=== PATIENT | female | born 1970 | race Caucasian/White ===

== ENCOUNTER 2023-06-18 16:21 | Outpatient (OUT) | payer BC, SELFPAY ==
[2023-06-24 19:07] LABS: Aspergillus flavus Negative (Neg:<1:1); Aspergillus fumigatus Negative (Neg:<1:1); Aspergillus niger Negative (Neg:<1:1)
== END 2023-06-18 16:22 | disposition home or self-care (01) ==
LOC: LAB 16:28
PROVIDERS: PCP Family Medicine; Visit Provider Family Medicine
DX: B44.89 Other forms of aspergillosis (principal)
CPT/HCPCS: 36415; 86003; 86606; 99999

== ENCOUNTER 2024-09-21 17:01 | Outpatient (OUT) | payer BC, OTHER, SELFPAY ==
--- NOTE | 2024-09-21 16:58 | MM_ITS ---
Patient Name: SOREN ROD MR#: [id number] : 1970 Exam Date: 09/21/2024 Ordering Doctor: DR Liseth Mckinney M.D. RADIOLOGY REPORT PROCEDURE: MM TOMOSYNTHESIS SCREENING BI COMPARISON: None. INDICATIONS: Screening Calculator Name NCI Breast Cancer Risk Assessment Tool 5 Year Breast Cancer Risk 1.40% Lifetime Breast Cancer Risk 12.00% Personal Breast Cancer No Personal Ovarian Cancer No Treatments None Family Cancers Grandfather-paternal with esophageal cancer at age 65; Father with esophageal cancer at age 41. LOCATION: [facility] BREAST COMPOSITION: There are scattered areas of fibroglandular density. FINDINGS: DIAGNOSTIC CATEGORY 1--NEGATIVE. RIGHT BREAST: No significant suspicious finding. LEFT BREAST: No significant suspicious finding. RECOMMENDATIONS: ROUTINE MAMMOGRAM AND CLINICAL EVALUATION IN 12 MONTHS. PLEASE NOTE: A NORMAL MAMMOGRAM DOES NOT EXCLUDE THE POSSIBILITY OF BREAST CANCER. A CLINICALLY SUSPICIOUS PALPABLE LUMP SHOULD BE BIOPSIED. Dictated by: Jez Larsen MD on 10/01/2024 at 14:42 Approved by: Jez Larsen MD on 10/01/2024 at 14:44
--- OUTSIDE RECORDS SUMMARY | 2024-09-21 17:04 | XMS_ITS | CCD ---
Author Organization [facility] Care Team Providers Care Construction And Maintenance Inspector Name Role Phone LISETH MCKINNEY Consulting Unavailable LISETH MCKINNEY Admitting Unavailable LISETH MCKINNEY Attending Unavailable LISETH MCKINNEY Consulting Unavailable FAYE LISETH E Primary Care Unavailable SUGEY MCKINNEYIA E Admitting Unavailable LISETH MCKINNEY E Attending Unavailable LISETH MCKINNEY E Consulting Unavailable SUGEY MCKINNEYIA E Admitting Unavailable LISETH MCKINNEY E Attending Unavailable Faye, Liseth Unavailable Allergies Allergy Classification Reported Allergen(s) Allergy Type Date of Onset Reaction(s) Facility (1 source) Sulfonamides (Antibiotic) Drug allergy (disorder) 10-14-19 17 [facility] (9 sources) Sulfacetamide Drug Allergy 09-10-19 [facility] (9 sources) wiggins flavor Propensity to adverse reactions 09-10-19 anaphylaxis [facility] (5 sources) zolpidem Drug Allergy 05-15-20 17 Unknown, [facility] Comment on above: Onset Date: 05/15/20 17 (1 source) Allergies Reconciled Propensity to adverse reactions Unknown [facility] Other (3 sources) Substance with sulfonamide structure and antibacterial mechanism of action (substance) Drug allergy 10-13-19 14 Unknown [facility] Other (1 source) patient allergy list reviewed by nurse or physicia Propensity to adverse reactions 09-11-19 18 Comment:Done [facility] Other (3 sources) Fruit & Vegetable Daily *DIETARY PRODUCTS/DIETARY Propensity to adverse reactions 10-13-19 14 Comment:pt is allergic to CHERRIES [facility] Other (2 sources) Sulfonamides (Antibiotic) Allergy to substance 09-10-19 [facility] Comment on above: Onset Date: 10/13/19 14 (2 sources) Fruit & Vegetable Daily *DIETA Allergy to substance 06-17-20 Comment:pt is allergic to CHERRIES [facility] Comment on above: Free Text Allergy: F ruit & Vegetable Daily *DIETARY PRODUCTS/DIETARY; Onset Date: 10/13/2013 Medications Current Medications Medication Drug Class(es) Dates Sig (Normalized) Sig (Original) 0.5 ML tirzepatide 10 MG/ML Auto-Injector [Mounjaro] (7 sources) Mounjaro 5 MG/0. 5ML as directed Subcutaneous weekly for 28 days Active Mounjaro 5 MG/0. 5ML as directed Subcutaneous Active Tirzepatide (8 sources) Start: 09-10-2024 Tirzepatide (M ounjaro) 5 mg/0.5 mL pen injector Active 5 MG SUBCUT every week 2 September 10, 2024 12:18pm Start: 04-22-2024 End: 09-10-2024 Tirzepatide (Mounjaro) 5 mg/ 0.5 mL pen injector Discontinued 5 MG SUBCUT every week 2 April 22, 2024 11:30am September 10, 2024 12:18pm Start: 12-02-2023 End: 04-22-2024 Tirzepatide (Mounjaro) 5 mg/ 0.5 mL pen injector Discontinued 5 MG SUBCUT every week 2 December 02, 2023 9:01am April 22, 2024 11:30am Start: 12-02-2023 End: 12-02-2023 Tirzepatide (Mounjaro) 5 mg/ 0.5 mL pen injector Discontinued 5 MG SUBCUT every week December 01, 2023 11:00pm December 02, 2023 9:02am Problems Active Problems Problem Classification Problem Date Documented Date Episodic/Chronic Anxiety disorders (10 sources) Generalized anxiety disorder; Translations: [Generalized anxiety disorder] Onset: 05-15-2017 Chronic Immunizations and screening for infectious disease (4 sources) Contact with and (suspected) exposure to other viral communicable diseases; Translations: [CONTCT EXPS OTH VIRL COMMUNICABL DZ] Onset: 08-14-2020 Episodic Mycoses (1 source) Other forms of aspergillosis Episodic Other circulatory disease (1 source) Elevated blood-pressure reading without diagnosis of hypertension; Translations: [Elevated blood-pressure reading, without diagnosis of hypertension] Episodic Other inflammatory condition of skin (7 sources) Seborrheic dermatitis of scalp; Translations: [Seborrhea capitis] Episodic Other inflammatory condition of skin (1 source) Seborrhea capitis; Translations: [Dandruff in adult] Episodic Other nutritional; endocrine; and metabolic disorders (7 sources) Obesity; Translations: [Other obesity due to excess calories] Chronic Other nutritional; endocrine; and metabolic disorders (12 sources) Body mass index 30+ - obesity; Translations: [Body mass index (BMI) 32.0-32.9, adult] Chronic Other nutritional; endocrine; and metabolic disorders (2 sources) Other obesity due to excess calories Chronic Other nutritional; endocrine; and metabolic disorders (1 source) Body mass index (BMI) 32.0-32.9, adult Chronic Other nutritional; endocrine; and metabolic disorders (1 source) Body mass index (BMI) 31.0-31.9, adult Chronic Other nutritional; endocrine; and metabolic disorders (1 source) Obese class II; Translations: [Body mass index (BMI) 36.0-36.9, adult] Chronic Other nutritional; endocrine; and metabolic disorders (1 source) Obese class I; Translations: [Body mass index 34.0-34.9, adult] Onset: 09-11-2017 Chronic Otitis media and related conditions (1 source) Otitis media; Translations: [Otitis media, unspecified, right ear] Episodic Unclassified (1 source) COVID-19; Translations: [COVID-19] Onset: 08-21-2020 Viral infection (1 source) Disease caused by 2019-nCoV; Translations: [COVID-19] Past or Other Problems Problem Classification Problem Date Documented Da te Episodic/Chronic Acute bronchitis (1 source) Acute bronchitis; Translations: [Acute bronchitis, unspecified] Onset: 06-26-2016 Episodic Other skin disorders (1 source) Disorder of skin and/or subcutaneous tissue; Translations: [Unspecified disorder of skin and subcutaneous tissue] Onset: 05-15-2017 Episodic Other upper respiratory infections (1 source) Acute sinusitis; Translations: [Acute sinusitis, unspecified] Onset: 10-13-2013 Episodic Results Test Name Value Interpretation Reference Range Facil ity SCREENING MAMMOGRAM W/COLEEN, BILATERAL*on 01-22-2022 SCREENING MAMMOGRAM W/COLEEN, BILATERAL* CLINICAL HISTORY: Screening Mammogram COMPARISON: Priors from 2020, 2017, 2015 TECHNIQUE: 2D and 3D mammogram imaging of both breasts was performed. RESULT: DENSITY: There are scattered areas of fibroglandular density. There is no suspicious mass, asymmetry, architectural distortion, or calcification. No significant change since the prior mammograms. IMPRESSION: BIRADS 1 : NEGATIVE, NORMAL INTERVAL FOLLOW UP FOLLOW-UP: 12 months DENSITY: Scattered MAMMOGRAPHY IS VERY IMPORTANT TO YOUR HEALTH. THE CURRENT [employer] [employer]WORK GUIDELINES RECOMMENDS ANNUAL MAMMOGRAPHY BEGINNING AT AGE 42 THIS FACILITY USES A REMINDER SYSTEM TO ENSURE ALL PATIENTS RECEIVE REMINDER NOTIFICATIONS AT THE APPROPRIATE TIME BASED ON THE RECOMMENDATIONS OF THIS EXAM. Board Certified Radiologist. Accredited by the ACR and FDA. Report reported and signed by Charlie Martinez on 01/22/2022 1540 Normal [facility]on 07-26 Covid-19 PCR NOT DETECTED Normal NOT DETECTED [facility] Comment on above: Result Comment: This test is not yet stacy roved or cleared by the [place] FDA. When there are no FDA-approved or cleared tests available, and other criteria are met, FDA can make tests available under an emergency access mechanism called an Emergency Use Authorization (EUA). The EUA for this test is supported by the Investment [employer] Associate of Health and Human Service's (HHS's) declaration that circumstances exist to justify the emergency use of in vitro diagnostics for the detection and/or diagnosis of the virus that causes COVID-19. This EUA will remain in effect (meaning this test can be used) for the duration of the COVID-19 declaration justifying emergency of IVDs, unless it is terminated or revoked by FDA (after which the test may no longer be used). Performed By: #### C [facility] #### [facility] [address] [place] [address] [place] EUA Statement SEE BELOW Normal [facility] Comment on above: Result Comment: This test is not yet stacy roved or cleared by the [place] FDA. When there are no FDA-approved or cleared tests available, and other criteria are met, FDA can make tests available under an emergency access mechanism called an Emergency Use Authorization (EUA). The EUA for this test is supported by the [employer] Associate of Health and Human Service?s (HHS?s) declaration that circumstances exist to justify the emergency use of in vitro diagnostics for the detection and/or diagnosis of the virus that causes COVID-19. This EUA will remain in effect (meaning this test can be used) for the duration of the COVID-19 declaration justifying emergency of IVDs, unless it is terminated or revoked by FDA (after which the test may no longer be used). When diagnostic testing is negative, the possibility of a false negative should be considered in the context of a patients recent exposures and the presence of clinical signs and symptoms consistent with SARS-CoV-2. Performed By: #### C [facility] #### [facility] [address] [place] [address] [place] [facility]on 07-25 Covid-19 PCR DETECTED Abnormal NOT DETECTED [facility] Comment on above: Result Comment: This test is not yet stacy roved or cleared by the [place] FDA. When there are no FDA-approved or cleared tests available, and other criteria are met, FDA can make tests available under an emergency access mechanism called an Emergency Use Authorization (EUA). The EUA for this test is supported by the [place] of Health and Human Service's (HHS's) declaration that circumstances exist to justify the emergency use of in vitro diagnostics for the detection and/or diagnosis of the virus that causes COVID-19. This EUA will remain in effect (meaning this test can be used) for the duration of the COVID-19 declaration justifying emergency of IVDs, unless it is terminated or revoked by FDA (after which the test may no longer be used). Performed By: #### C [facility] #### [facility] [address] [place] [address] [place] EUA Statement SEE BELOW Normal [facility] Comment on above: Result Comment: This test is not yet stacy roved or cleared by the [place] FDA. When there are no FDA-approved or cleared tests available, and other criteria are met, FDA can make tests available under an emergency access mechanism called an Emergency Use Authorization (EUA). The EUA for this test is supported by the Investment [employer] Associate of Health and Human Service?s (HHS?s) declaration that circumstances exist to justify the emergency use of in vitro diagnostics for the detection and/or diagnosis of the virus that causes COVID-19. This EUA will remain in effect (meaning this test can be used) for the duration of the COVID-19 declaration justifying emergency of IVDs, unless it is terminated or revoked by FDA (after which the test may no longer be used). When diagnostic testing is negative, the possibility of a false negative should be considered in the context of a patients recent exposures and the presence of clinical signs and symptoms consistent with SARS-CoV-2. Performed By: #### C [facility] #### [facility] [address] [place] [address] [place] Covid-19 PCR ([facility])on 07-25 Covid-19 PCR DETECTED Abnormal NOT DETECTED [facility] Comment on above: Result Comment: This test is not yet stacy roved or cleared by the [place] FDA. When there are no FDA-approved or cleared tests available, and other criteria are met, FDA can make tests available under an emergency access mechanism called an Emergency Use Authorization (EUA). The EUA for this test is supported by the [place] of Health and Human Service's (HHS's) declaration that circumstances exist to justify the emergency use of in vitro diagnostics for the detection and/or diagnosis of the virus that causes COVID-19. This EUA will remain in effect (meaning this test can be used) for the duration of the COVID-19 declaration justifying emergency of IVDs, unless it is terminated or revoked by FDA (after which the test may no longer be used). Performed By: #### C [facility] #### [facility] [address] [id number] [place] EUA Statement SEE BELOW Normal [facility] Comment on above: Result Comment: This test is not yet stacy roved or cleared by the [place] FDA. When there are no FDA-approved or cleared tests available, and other criteria are met, FDA can make tests available under an emergency access mechanism called an Emergency Use Authorization (EUA). The EUA for this test is supported by the Investment [employer]ing Associate of Health and Human Service?s (HHS?s) declaration that circumstances exist to justify the emergency use of in vitro diagnostics for the detection and/or diagnosis of the virus that causes COVID-19. This EUA will remain in effect (meaning this test can be used) for the duration of the COVID-19 declaration justifying emergency of IVDs, unless it is terminated or revoked by FDA (after which the test may no longer be used). When diagnostic testing is negative, the possibility of a false negative should be considered in the context of a patients recent exposures and the presence of clinical signs and symptoms consistent with SARS-CoV-2. Performed By: #### [facility] #### [facility] [address] [place] [address] [place] Vital Signs Date Time Vital Sign Value Performing Clinician Facility 09-10-2024 12:03-0500 Body height 158.75 cm [facility] 09-10-2024 12:03-0500 Body mass index (BMI) [Ratio] 32.5 kg/m2 [facility] 09-10-2024 12:03-0500 Body weight 82.1 kg [facility] 09-10-2024 12:03-0500 Diastolic blood pressure 84 mm[Hg] [facility] 09-10-2024 12:03-0500 Heart rate 61 /min [facility] 09-10-2024 12:03-0500 Systolic blood pressure 122 mm[Hg] [facility] 06-17-2023 14:45-0400 Body height 159.38 cm Liseth Mckinney Other [facility] Other 06-17-2023 14:45-0400 Body mass index (BMI) [Ratio] 30.17 kg/m2 Liseth Mckinney Other [facility] Other 06-17-2023 14:45-0400 Body weight 76.66 kg Liseth Mckinney Other [facility] Other 06-17-2023 14:45-0400 Diastolic blood pressure 79 mm[Hg] Liseth Mckinney Other [facility] Other 06-17-2023 14:45-0400 Systolic blood pressure 117 mm[Hg] Liseth Mckinney Other [facility] Other 02-24-2023 08:30-0400 Body height 159.38 cm Liseth Mckinney Other [facility] Other 02-24-2023 08:30-0400 Body mass index (BMI) [Ratio] 31.53 kg/m2 Liseth Mckinney Other [facility] Other 02-24-2023 08:30-0400 Body weight 80.11 kg Liseth Mckinney Other [facility] Other 02-24-2023 08:30-0400 Diastolic blood pressure 75 mm[Hg] Liseth Mckinney Other [facility] Other 02-24-2023 08:30-0400 Systolic blood pressure 111 mm[Hg] Liseth Mckinney Other [facility] Other 11-26-2022 16:30-0400 Body height 159.38 cm Liseth Mckinney Other [facility] Other 11-26-2022 16:30-0400 Body mass index (BMI) [Ratio] 32.85 kg/m2 Liseth Mckinney Other [facility] Other 11-26-2022 16:30-0400 Body weight 83.46 kg Liseth Mckinney Other [facility] Other 11-26-2022 16:30-0400 Diastolic blood pressure 78 mm[Hg] Liseth Mckinney Other [facility] Other 11-26-2022 16:30-0400 SaO2% (BldA) [Mass fraction] 99 % Liseth Mckinney Other [facility] Other 11-26-2022 16:30-0400 Systolic blood pressure 126 mm[Hg] Liseth Mckinney Other [facility] Other Encounters Encounter Date Encounter Type Care Provider Facility Start: 09-10-2024 End: 09-10-[address] [facility] Work Phone: Start: 09-10-2024 End: 09-10-2024 Patient encounter procedure [facility] Work Phone: Start: 06-25-2023 End: 06-25-2023 ambulatory Liseth Mckinney Other [facility] Other Start: 06-25-2023 Telephone encounter Liseth Mckinney [facility] Start: 06-17-2023 End: 06-17-2023 ambulatory Liseth Mckinney Other [facility] Other Start: 06-17-2023 Office outpatient vi sit 15 minutes Liseth Mckinney [facility] Start: 03-20-2023 End: 03-20-2023 ambulatory Liseth Mckinney Other [facility] Other Start: 03-20-2023 Telephone encounter Liseth Mckinney [facility] Start: 02-24-2023 End: 02-24-2023 ambulatory Liseth Mckinney Other [facility] Other Start: 02-24-2023 Office outpatient vi sit 15 minutes Liseth Mckinney [facility] Start: 02-21-2023 End: 02-21-2023 ambulatory Liseth Mckinney Other [facility] Other Start: 02-21-2023 Telephone encounter Liseth Mckinney [facility] Start: 01-17-2023 End: 01-17-2023 ambulatory Liseth Mckinney Other [facility] Other Start: 01-17-2023 Telephone encounter Liseth Faye [facility] Start: 11-26-2022 End: 11-26-2022 ambulatory Liseth Mckinney Other [facility] Other Start: 11-26-2022 Office outpatient vi sit 15 minutes Liseth Faye [facility] Start: 07-31-2022 Adult health examination Liseth Mckinney Other [facility] Other Start: 08-14-2020 End: 08-14-2020 Patient encounter procedure LISETH Maria Luz FAYE Facility:[facility] Start: 08-08-2020 End: 08-08-2020 Patient encounter procedure LISETH MCKINNEY Facility: Start: 08-03-2020 End: 08-04-2020 Patient encounter procedure LISETH Maria Luz FAYE Facility:[facility] Payers Date Payer Category Payer Unknown [id number] [id number] [id number] 1970 Unknown [id number] 2.16.84 [id number] 1970 Unknown [id number] [id number] [id number] 1957 Unknown [id number] 1957 Unknown [id number] Unknown 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 attempted to get her in to human factors advisor lead, but they had no openings. Ordered an allergen profile and aspergillus ab quantitative. Labs handwritten and faxed to [facility] lab. [facility] Other Evaluation note 02-24-2023 Note Date & Type Note Facility 02-24-2023 Evaluation note Encounter Date Diagnosis Assessment Notes Feb, Other obesity due to excess calories (ICD-10 - E66.09) 8# weight loss in 3 months. Discussed diet and exercise. Would like to continue Mounjaro. No insurance issues. Feb, Body mass index [BMI] 31.0-31.9, adult (ICD-10 - Z68.31) Feb, JAQUELIN (generalized anxiety disorder) (ICD-10 - F41.1) Stable at present med/dose. Doing well. [facility] Other Evaluation note 11-26-2022 Note Date & Type Note Facility 11-26-2022 Evaluation note Encounter Date Diagnosis Assessment Notes Nov, Other obesity due to excess calories (ICD-10 - E66.09) Will refill med when due - has definately changed diet and exercise. Has done great on med and denies problems obtaining it w her insurance. Nov, Body mass index [BMI] 32.0-32.9, adult (ICD-10 - Z68.32) [facility] Other Evaluation note Note Date & Type Note Facility Evaluation note No Information [facility] Other Evaluation note Note Date & Type Note Facility Evaluation note No assessment information availa ble [facility] Work Phone: History general Narrative - Reported Note Date & Type Note Facility History general Narrative - Reported Type Medical History Dandruff in adult Medical History JAQUELIN (generalized anxiety disorde r) Surgical History wisdom teeth Hospitalization History child [facility] Other Summary Purpose Family History Relationship Condition Age at Onset Recorded Date/T torrey mother Hypertension Unknown Advance Directives Advance Directive Response Recorded Date/ Time Advance Directives No February 03 2:35pm Chief Complaint and Reason for Visit Chief Complaint Admit Date Med f/u September 10, 2024 1 1:54am Additional Source Comments INFORMATION SOURCE (unrecogn ized section and content) DATE CREATED AUTHOR 08/24/2020 [facility] DATE CREATED AUTHOR AUTHOR'S ORGANIZ ATION 01/23/2022 [facility] dical Specialist REASON FOR VISIT (unrecogniz ed section and content) Med DiscussionRefillRefill3 month Follow upNo Informationdiscuss black mold allergy testingmold testing Care Teams (unrecognized sec tion and content) Team Status: Active Member Role Status Dates Liseth Mckinney MD Primary Care Provider Active Team Status: Inactive Member Role Status Dates Liseth Mckinney MD Primary Care Provide r, Attending Provider Active Start: September 10, 2024 End: September 10, 2024 Goals (unrecognized section and content) Goals may be documented in a n alternate section FOR RECORDS PERTAINING TO PATIENTS WHO ARE OR HAVE BEEN ENROLLED IN A CHEMICAL DEPENDENCY/SUBSTANCEABUSE PROGRAM, SOME INFORMATION MAY BE OMITTED. This clinical summary was aggregated from multiple sources. Caution should be exercised in using it in the provision of clinical care. This summary normalizes information from multiple sources, and as a consequence, information in this document may materially change the coding, format and clinical context of patient data. In addition, data may be omitted in some cases. CLINICAL DECISIONS SHOULD BE BASED ON THE PRIMARY CLINICAL RECORDS. [facility]. provides no warranty or guarantee of the accuracy or completeness of information in this document.
== END 2024-09-21 17:02 | disposition home or self-care (01) ==
LOC: MAMMO 17:02
PROVIDERS: PCP Family Medicine; Visit Provider Family Medicine
DX: Z12.31 Encounter for screening mammogram for malignant neoplasm of breast (principal); Z80.8 Family history of malignant neoplasm of other organs or systems
CPT/HCPCS: 77063; 77067

== ENCOUNTER 2024-10-01 07:42 | Outpatient (OUT) | payer BC, OTHER, SELFPAY ==
--- OUTSIDE RECORDS SUMMARY | 2024-10-01 07:45 | XMS_ITS | CCD ---
Author Organization [facility] Care Team Providers Care [employer] Superintendent Name Role Phone LISETH MCKINNEY Consulting Unavailable [...] (Antibiotic) Drug allergy (disorder) 10-14-19 17 [facility] (9 sources) Sulfacetamide Drug Allergy 09-10-19 [facility] (9 sources) wiggins flavor Propensity to adverse reactions 09-10-19 anaphylaxis [facility] (5 sources) zolpidem Drug Allergy 05-15-20 17 Unknown, [facility] Comment on above: Onset Date: 05/15/20 17 (1 source) Allergies Reconciled Propensity to adverse reactions Unknown [facility] Other (3 sources) Substance with sulfonamide structure and antibacterial mechanism of action (substance) Drug allergy 10-13-19 14 Unknown [facility] (1 source) patient allergy list reviewed by nurse or physicia Propensity to adverse reactions 09-11-19 18 Comment:Done [facility] Other (3 sources) Fruit & Vegetable Daily *DIETARY PRODUCTS/DIETARY Propensity to adverse reactions 10-13-19 14 Comment:pt is allergic to CHERRIES [facility] Other (2 sources) Sulfonamides (Antibiotic) Allergy to substance 09-10-19 [facility] Comment on above: Onset Date: 10/13/19 14 (2 sources) Fruit & Vegetable Daily *DIETA Allergy to substance 06-17-20 Comment:pt is allergic to CHERRIES [facility] Comment on above: Free Text Allergy: F [...] VERY IMPORTANT TO YOUR HEALTH. THE CURRENT CITIZEN OF [place] [employer] GUIDELINES RECOMMENDS ANNUAL MAMMOGRAPHY BEGINNING AT AGE 42 THIS FACILITY USES A REMINDER SYSTEM TO ENSURE ALL PATIENTS RECEIVE REMINDER NOTIFICATIONS AT THE APPROPRIATE TIME BASED ON THE RECOMMENDATIONS OF THIS EXAM. Board Certified Radiologist. Accredited by the ACR and FDA. Report reported and signed by Charlie Martinez on 01/22/2022 1540 Normal [facility] Covid-19 PCR NOT DETECTED Normal NOT DETECTED [facility] Comment on above: Result Comment: This test is not yet stacy roved or cleared by the [place] FDA. When there are no FDA-approved or cleared tests available, and other criteria are met, FDA can make tests available under an emergency access mechanism called an Emergency Use Authorization (EUA). The EUA for this test is supported by the Line [employer] of Health and Human Service's (HHS's) declaration [...] longer be used). Performed By: #### [facility] #### [facility] [address] [place] [address] Odell Woods EUA Statement SEE BELOW Normal [facility] Comment on above: Result Comment: This test is not yet stacy roved or cleared by the [place] FDA. When there are no FDA-approved or cleared tests available, and other criteria are met, FDA can make tests available under an emergency access mechanism called an Emergency Use Authorization (EUA). The EUA for this test is supported by the Line Analyst of Health and Human Service?s (HHS?s) declaration [...] SARS-CoV-2. Performed By: #### C [facility] #### [facility] [address] [place] [address] Odell Woods [facility]-25 Covid-19 PCR DETECTED Abnormal NOT DETECTED [facility] Comment on above: Result Comment: This test is not yet stacy roved or cleared by the [place] FDA. When there are no FDA-approved or cleared tests available, and other criteria are met, FDA can make tests available under an emergency access mechanism called an Emergency Use Authorization (EUA). The EUA for this test is supported by the [place] of Health and Human Service's (HHS's) declaration [...] used). Performed By: #### C [facility] #### [facility] [address] [place] [address] Odell Woods EUA Statement SEE BELOW Normal [facility] Comment on above: Result Comment: This test is not yet stacy roved or cleared by the [place] FDA. When there are no FDA-approved or cleared tests available, and other criteria are met, FDA can make tests available under an emergency access mechanism called an Emergency Use Authorization (EUA). The EUA for this test is supported by the Line Analyst of Health and Human Service?s (HHS?s) declaration [...] SARS-CoV-2. Performed By: #### C [facility] #### [facility] [address] [place] [address] Odell Woods Covid-19 PCR ([facility])on 07-25 Covid-19 PCR DETECTED Abnormal NOT DETECTED [facility] Comment on above: Result Comment: This test is not yet stacy roved or cleared by the [place] FDA. When there are no FDA-approved or cleared tests available, and other criteria are met, FDA can make tests available under an emergency access mechanism called an Emergency Use Authorization (EUA). The EUA for this test is supported by the [place] of Health and Human Service's (HHS's) declaration [...] used). Performed By: #### C [facility] #### [facility] [address] [id number] Odell Woods EUA Statement SEE BELOW Normal [facility] Comment on above: Result Comment: This test is not yet stacy roved or cleared by the [place] FDA. When there are no FDA-approved or cleared tests available, and other criteria are met, FDA can make tests available under an emergency access mechanism called an Emergency Use Authorization (EUA). The EUA for this test is supported by the Line Analyst of Health and Human Service?s (HHS?s) declaration [...] consistent with SARS-CoV-2. Performed By: #### [facility] #### [facility] [address] [place] [address] Odell Woods Vital Signs Date Time Vital Sign Value Performing Clinician Facility 09-10-2024 12:03-0500 Body height 158.75 cm [facility] 09-10-2024 12:03-0500 Body mass index (BMI) [Ratio] 32.5 kg/m2 [facility] 09-10-2024 12:03-0500 Body weight 82.1 kg [facility] 09-10-2024 12:03-0500 Diastolic blood pressure 84 mm[Hg] [facility] 09-10-2024 12:03-0500 Heart rate 61 /min [facility] 09-10-2024 12:03-0500 Systolic blood pressure 122 mm[Hg] [facility] 06-17-2023 14:45-0400 Body height 159.38 cm Liseth Mckinney Other [facility] 06-17-2023 14:45-0400 Body mass index (BMI) [Ratio] 30.17 kg/m2 Liseth Mckinney Other [facility] Other 06-17-2023 14:45-0400 Body weight 76.66 kg Liseth Mckinney Other [facility] Other 06-17-2023 14:45-0400 Diastolic blood pressure 79 mm[Hg] Liseth Mckinney Other [facility] Other 06-17-2023 14:45-0400 Systolic blood pressure 117 mm[Hg] Liseth Mckinney Other [facility] Other 02-24-2023 08:30-0400 Body height 159.38 cm Liseth Mckinney Other [facility] Other 02-24-2023 08:30-0400 Body mass index (BMI) [Ratio] 31.53 kg/m2 Liseth Mckinney Other [facility] Other 02-24-2023 08:30-0400 Body weight 80.11 kg Liseth Mckinney Other [facility] Other 02-24-2023 08:30-0400 Diastolic blood pressure 75 mm[Hg] Liseth Mckinney Other [facility] Other 02-24-2023 08:30-0400 Systolic blood pressure 111 mm[Hg] Liseth Mckinney Other [facility] Other 11-26-2022 16:30-0400 Body height 159.38 cm Liseth Mckinney Other [facility] Other 11-26-2022 16:30-0400 Body mass index (BMI) [Ratio] 32.85 kg/m2 Liseth Mckinney Other [facility] Other 11-26-2022 16:30-0400 Body weight 83.46 kg Liseth Mckinney Other [facility] Other 11-26-2022 16:30-0400 Diastolic blood pressure 78 mm[Hg] Liseth Mckinney Other [facility] Other 11-26-2022 16:30-0400 SaO2% (BldA) [Mass fraction] 99 % Liseth Mckinney Other [facility] Other 11-26-2022 16:30-0400 Systolic blood pressure 126 mm[Hg] Liseth Mckinney Other [facility] Other Encounters Encounter Date Encounter Type Care Provider Facility Start: 09-10-2024 End: 09-10-2024 ambulatory [facility] Work Phone: Start: 09-10-2024 End: 09-10-2024 Patient encounter procedure [facility] Work Phone: Start: 06-25-2023 End: 06-25-2023 ambulatory Liseth Mckinney Other [facility] Other Start: 06-25-2023 Telephone encounter Liseth Mckinney [facility] Start: 06-17-2023 End: 06-17-2023 ambulatory Liseth Mckinney Other [facility] Other Start: 06-17-2023 Office outpatient vi sit 15 minutes Liseth Mckinney [facility] Start: 03-20-2023 End: 03-20-2023 ambulatory Liseth Mckinney Other [facility] Other Start: 03-20-2023 Telephone encounter Liseth Mckinney [facility] Start: 02-24-2023 End: 02-24-2023 ambulatory Liseth Mckinney Other [facility] Other Start: 02-24-2023 Office outpatient vi sit 15 minutes Liseth Mckinney [facility] Start: 02-21-2023 End: 02-21-2023 ambulatory Liseth Mckinney Other [facility] Other Start: 02-21-2023 Telephone encounter Liseth Mckinney [facility] Start: 01-17-2023 End: 01-17-2023 ambulatory Liseth cMkinney Other [facility] Other Start: 01-17-2023 Telephone encounter Liseth Faye [facility] Start: 11-26-2022 End: 11-26-2022 ambulatory Liseth Mckinney Other [facility] Other Start: 11-26-2022 Office outpatient vi sit 15 minutes Liseth Faye [facility] Start: 07-31-2022 Adult health examination Liseth Mckinney Other [facility] Other Start: 08-14-2020 End: 08-14-2020 Patient encounter procedure LISETH Maria Luz FAYE Facility:[facility] Start: 08-08-2020 End: 08-08-2020 Patient encounter procedure LISETH MCKINNEY Facility: Start: 08-03-2020 End: 08-04-2020 Patient encounter procedure LISETH Maria Luz FAYE Facility:[facility] Payers Date Payer Category Payer Unknown [id number] [id number] [id number] 1972 Unknown [id number] [id number] [id number] 1972 Unknown [id number] 1959 Unknown [id number] 1957 Unknown [id number] Unknown [id number]. [id number] Unknown MMO [id number] Social History Date Type Detail Facility Unknown if ever smoked [facility] Other Sex Assigned At Sex Assigned At Bir th [facility] Other Start: 07-29-2018 Tobacco smoking status NHIS Never smoked tobacco (finding) [facility] Start: 09-10-2024 End: 09-10-2024 Sex Female (finding) [facility] Start: 1970 Sex Assigned At Female F [facility] Evaluation note 06-17-2023 Note Date & Type Note Facility 06-17-2023 Evaluation note Encounter Date Diagnosis Assessment Notes May, 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 attempted to get her in to care program director, but they had no openings. Ordered an allergen profile and aspergillus ab quantitative. Labs handwritten and faxed to [facility] lab. [facility] Other Evaluation note 02-24-2023 Note Date & [...] F41.1) Stable at present med/dose. Doing well. [facility] Other Evaluation note 11-26-2022 Note Date & Type Note Facility 11-26-2022 Evaluation note Encounter Date Diagnosis Assessment Notes Nov, Other obesity due to excess calories (ICD-10 - E66.09) Will refill med when due - has definately changed diet and exercise. Has done great on med and denies problems obtaining it w her insurance. Nov, Body mass index [BMI] 32.0-32.9, adult (ICD-10 - Z68.32) [facility] Other Evaluation note Note Date & Type Note Facility Evaluation note No Information [employer] Other Evaluation note Note Date & Type Note Facility Evaluation note No assessment information availa ble [facility] Work Phone: History general Narrative - Reported Note Date & Type Note Facility History general Narrative - Reported Type Medical History Dandruff in adult Medical History JAQUELIN (generalized anxiety disorde r) Surgical History wisdom teeth Hospitalization History child [facility] [employer] Other Summary Purpose Family History Relationship Condition Age at Onset Recorded Date/T torrey mother Hypertension Unknown Advance Directives Advance Directive Response Recorded Date/ Time Advance Directives No February 03 2:35pm Chief Complaint and Reason for Visit Chief Complaint Admit Date Med f/u September 10, 2024 1 1:54am Additional Source Comments INFORMATION SOURCE (unrecogn ized section and content) DATE CREATED AUTHOR 08/24/2020 [facility] DATE CREATED AUTHOR AUTHOR'S ORGANIZ ATION 01/23/2022 [facility] dical Specialist REASON FOR VISIT (unrecogniz [...] BE BASED ON THE PRIMARY CLINICAL RECORDS. [employer] [facility]. provides no warranty or guarantee of the accuracy or completeness of information in this document.
[2024-10-01 08:17] LABS: Basophils Percent Auto 1.1 % (0.2-2.0); Eosinophils Absolute Auto 0.1 10^3/uL (0.0-0.7); Eosinophils Percent Auto 1.6 % (0.9-7.0); Hematocrit 35.5 % (36.0-48.0); Lymphocytes Absolute Auto 1.4 10^3/uL (1.2-3.8); Lymphocytes Percent Auto 37.7 % (20.5-60.0); Mean Corpuscular Hemoglobin 25.9 pg (26.7-34.0); Mean Corpuscular Volume 83.7 fL (81.0-99.0); Monocytes Absolute Auto 0.3 10^3/uL (0.3-0.8); Monocytes Percent Auto 7.6 % (1.7-12.0); Neutrophils Absolute Auto 1.9 10^3/uL (1.4-6.5); Platelet Count 355 10^3/uL (150-450); Red Blood Count 4.24 10^6/uL (4.20-5.40); Red Cell Distribution Width 15.5 % (11.0-15.0); White Blood Count 3.7 10^3/uL (4.0-11.0)
[2024-10-01 08:29] LABS: Estimated Average Glucose 114 mg/dL
[2024-10-01 08:59] LABS: Glycohemoglobin A1C 5.6 % (4.5-6.2)
[2024-10-01 09:19] LABS: Alanine Aminotransferase 44 U/L (14-59); Albumin Globulin Ratio 1.1; Albumin Level 3.8 g/dL (3.4-5.0); Alkaline Phosphatase 64 U/L (46-116); Anion Gap 12.7; Aspartate Amino Transferase 30 U/L (15-37); BUN Creatinine Ratio 20.3; Bilirubin Total 0.4 mg/dL (0.2-1.0); Calcium 9.1 mg/dL (8.5-10.1); Carbon Dioxide 28.4 mmol/L (21.0-32.0); Chloride 106 mmol/L (98-107); Chol HDL Ratio 2.1; Cholesterol 228 mg/dL (<=200); Estimated GFR (African America >60 (>=60 mL/min/1.73m^2); Estimated GFR (Non-African Ame >60 (>=60 mL/min/1.73m^2); Globulin 3.5 g/dL; Glucose 95 mg/dL (74-106); HDL Cholesterol 107 mg/dL (40-60); Potassium 4.1 mmol/L (3.5-5.1); Sodium 143 mmol/L (136-145); Thyroid Stimulating Hormone 0.995 uIU/mL (0.358-3.740); Total Protein 7.3 g/dL (6.4-8.2); Triglycerides 34 mg/dL (<=150); VLDL CHOLESTEROL 6.8 mg/dL
== END 2024-10-01 07:43 | disposition home or self-care (01) ==
LOC: LAB 07:43
PROVIDERS: PCP Family Medicine; Visit Provider Family Medicine
DX: Z00.00 Encounter for general adult medical examination without abnormal findings (principal); R73.09 Other abnormal glucose; R63.5 Abnormal weight gain
CPT/HCPCS: 36415; 80053; 80061; 83036; 84443; 85025

== ENCOUNTER 2024-11-12 08:00 | Outpatient (OUT) | payer BC, OTHER, SELFPAY ==
--- OUTSIDE RECORDS SUMMARY | 2024-11-12 08:06 | XMS_ITS | CCD ---
Author Organization [facility] Care Team Providers Care Evening Or Night Nurse Supervisor Name Role Phone LISETH MCKINNEY Consulting Unavailable [...] (Antibiotic) Drug allergy (disorder) 10-14-19 17 [facility] (9 sources) Sulfacetamide Drug Allergy 09-10-19 [facility] (9 sources) wiggins flavor Propensity to adverse reactions 09-10-19 anaphylaxis [facility] (5 sources) zolpidem Drug Allergy 05-15-20 17 Unknown, [facility] Comment on above: Onset Date: 05/15/20 17 (1 source) Allergies Reconciled Propensity to adverse reactions Unknown [facility] Other (3 sources) Substance with sulfonamide structure and antibacterial mechanism of action (substance) Drug allergy 10-13-19 14 Unknown [facility] Other (1 source) patient allergy list reviewed by nurse or physicia Propensity to adverse reactions 09-11-19 18 Comment:Done [facility] Other (3 sources) Fruit & Vegetable Daily *DIETARY PRODUCTS/DIETARY Propensity to adverse reactions 10-13-19 14 Comment:pt is allergic to CHERRIES [facility] Other (2 sources) Sulfonamides (Antibiotic) Allergy to substance 09-10-19 [facility] Comment on above: Onset Date: 10/13/19 14 (2 sources) Fruit & Vegetable Daily *DIETA Allergy to substance 06-17-20 Comment:pt is allergic to CHERRIES [facility] Comment on above: Free Text Allergy: F [...] VERY IMPORTANT TO YOUR HEALTH. THE CURRENT [employer] OF [employer] AND NATIONAL COMPREHENSIVE CANCER NETWORK GUIDELINES RECOMMENDS ANNUAL MAMMOGRAPHY BEGINNING AT AGE 42 THIS FACILITY USES A REMINDER SYSTEM TO ENSURE ALL PATIENTS RECEIVE REMINDER NOTIFICATIONS AT THE APPROPRIATE TIME BASED ON THE RECOMMENDATIONS OF THIS EXAM. Board Certified Radiologist. Accredited by the ACR and FDA. Report reported and signed by Charlie Martinez on 01/22/2022 1540 Normal [facility] Covid-19 PCR [facility]on 07-26 Covid-19 PCR NOT DETECTED Normal NOT DETECTED [facility] Comment on above: Result Comment: This test is not yet stacy roved or cleared by the [place] FDA. When there are no FDA-approved or cleared tests available, and other criteria are met, FDA can make tests available under an emergency access mechanism called an Emergency Use Authorization (EUA). The EUA for this test is supported by the [employer] Merchandiser of Health and Human Service's (HHS's) declaration [...] longer be used). Performed By: #### C [facility] #### [facility] [address] [place] [address] Odell Woods EUA Statement SEE BELOW Normal The [facility] Comment on above: Result Comment: This test is not yet stacy roved or cleared by the [place] FDA. When there are no FDA-approved or cleared tests available, and other criteria are met, FDA can make tests available under an emergency access mechanism called an Emergency Use Authorization (EUA). The EUA for this test is supported by the [place] of Health and Human Service?s (HHS?s) declaration [...] SARS-CoV-2. Performed By: #### C [facility] #### [facility] [address] [place] [address] Odell Woods [facility]on 07-25 Covid-19 PCR DETECTED Abnormal NOT DETECTED [facility] Comment on above: Result Comment: This test is not yet stacy roved or cleared by the [place] FDA. When there are no FDA-approved or cleared tests available, and other criteria are met, FDA can make tests available under an emergency access mechanism called an Emergency Use Authorization (EUA). The EUA for this test is supported by the [employer] Merchandiser of Health and Human Service's (HHS's) declaration [...] used). Performed By: #### C [facility] #### [facility] [address] [place] [address] Odell Woods EUA Statement SEE BELOW Normal The [facility] Comment on above: Result Comment: This test is not yet stacy roved or cleared by the [place] FDA. When there are no FDA-approved or cleared tests available, and other criteria are met, FDA can make tests available under an emergency access mechanism called an Emergency Use Authorization (EUA). The EUA for this test is supported by the [employer] Merchandiser of Health and Human Service?s (HHS?s) declaration [...] SARS-CoV-2. Performed By: #### C [facility] #### [facility] [address] [place] [address] Odell Woods Covid-19 PCR ([facility])on 07-25 Covid-19 PCR DETECTED Abnormal NOT DETECTED The [facility] Comment on above: Result Comment: This test is not yet stacy roved or cleared by the [place] FDA. When there are no FDA-approved or cleared tests available, and other criteria are met, FDA can make tests available under an emergency access mechanism called an Emergency Use Authorization (EUA). The EUA for this test is supported by the [place] of Health and Human Service's (HHS's) declaration [...] used). Performed By: #### C [facility] #### [facility] [address] [id number] Odell Woods EUA Statement SEE BELOW Normal The [facility] Comment on above: Result Comment: This test is not yet stacy roved or cleared by the [place] FDA. When there are no FDA-approved or cleared tests available, and other criteria are met, FDA can make tests available under an emergency access mechanism called an Emergency Use Authorization (EUA). The EUA for this test is supported by the [place] of Health and Human Service?s (HHS?s) declaration [...] consistent with SARS-CoV-2. Performed By: #### C [facility] #### [facility] [address] [place] [address] Odell Woods Vital Signs Date Time Vital Sign Value Performing Clinician Facility 09-10-2024 12:03-0500 Body height 158.75 cm [facility] 09-10-2024 12:03-0500 Body mass index (BMI) [Ratio] 32.5 kg/m2 [facility] 09-10-2024 12:03-0500 Body weight 82.1 kg [facility] 09-10-2024 12:03-0500 Diastolic blood pressure 84 mm[Hg] [facility] 09-10-2024 12:03-0500 Heart rate 61 /min [facility] 09-10-2024 12:03-0500 Systolic blood pressure 122 mm[Hg] [facility] 06-17-2023 14:45-0400 Body height 159.38 cm Liseth Mckinney Other [facility] Other 06-17-2023 14:45-0400 Body mass index (BMI) [Ratio] 30.17 kg/m2 Liseth Mckinney Other [facility] Other 06-17-2023 14:45-0400 Body weight 76.66 kg Liseth Mckinney Other [facility] Other 06-17-2023 14:45-0400 Diastolic blood pressure 79 mm[Hg] Liseth Mckinney Other [facility] Other 06-17-2023 14:45-0400 Systolic blood pressure 117 mm[Hg] Liseth Mckinney Other [facility] Other 02-24-2023 08:30-0400 Body height 159.38 cm Liseth Mckinney Other [facility] Other 02-24-2023 08:30-0400 Body mass index (BMI) [Ratio] 31.53 kg/m2 Liseth Mckinney Other [facility] Other 02-24-2023 08:30-0400 Body weight 80.11 kg Liseth Mckinney Other [facility] Other 02-24-2023 08:30-0400 Diastolic blood pressure 75 mm[Hg] Liseth Mckinney Other [facility] Other 02-24-2023 08:30-0400 Systolic blood pressure 111 mm[Hg] Liseth Mckinney Other [facility] Other 11-26-2022 16:30-0400 Body height 159.38 cm Liseth Mckinney Other [facility] Other 11-26-2022 16:30-0400 Body mass index (BMI) [Ratio] 32.85 kg/m2 Liseth Mckinney Other [facility] Other 11-26-2022 16:30-0400 Body weight 83.46 kg Liseth Mckinney Other [facility] Other 11-26-2022 16:30-0400 Diastolic blood pressure 78 mm[Hg] Liseth Mckinney Other [facility] Other 11-26-2022 16:30-0400 SaO2% (BldA) [Mass fraction] 99 % Liseth Mckinney Other [facility] Other 11-26-2022 16:30-0400 Systolic blood pressure 126 mm[Hg] Liseth Mckinney Other [facility] Other Encounters Encounter Date Encounter Type Care Provider Facility Start: 09-10-2024 End: 09-10-[address] [facility] Work Phone: Start: 09-10-2024 End: 09-10-2024 Patient encounter procedure [facility] Work Phone: Start: 06-25-2023 End: 06-25-2023 ambulatory Liseth Mckinney Other [facility] Other Start: 06-25-2023 Telephone encounter Liseth Mckinney [facility] Start: 06-17-2023 End: 06-17-2023 ambulatory Liseth Mckinney Other [facility] Other Start: 06-17-2023 Office outpatient vi sit 15 minutes Liseth Mckinney [facility] Start: 03-20-2023 End: 03-20-2023 ambulatory Liseth Mckinney Other [facility] Other Start: 03-20-2023 Telephone encounter Liseth Mckinney [facility] Start: 02-24-2023 End: 02-24-2023 ambulatory Liseth Mckinney Other [facility] Other Start: 02-24-2023 Office outpatient vi sit 15 minutes Liseth Mckinney [facility] Start: 02-21-2023 End: 02-21-2023 ambulatory Liseth Mckinney Other [facility] Other Start: 02-21-2023 Telephone encounter Liseth Mckinney [facility] Start: 01-17-2023 End: 01-17-2023 ambulatory Liseth Mckinney Other [facility] Other Start: 01-17-2023 Telephone encounter Liseth Faye [facility] Start: 11-26-2022 End: 11-26-2022 ambulatory Liseth Mckinney Other [facility] Other Start: 11-26-2022 Office outpatient vi sit 15 minutes Liseth Faye [facility] Start: 07-31-2022 Adult health examination Liseth Mckinney Other [facility] Other Start: 08-14-2020 End: 08-14-2020 Patient encounter procedure LISETH Maria Luz FAYE Facility:[facility]1 Start: 08-08-2020 End: 08-08-2020 Patient encounter procedure LISETH MCKINNEY Facility: Start: 08-03-2020 End: 08-04-2020 Patient encounter procedure LISETH Maria Luz FAYE Facility:[facility]1 Payers Date Payer Category Payer Unknown [id number] [id number] 1970 Unknown [id number] [id number] 1970 Unknown [id number] 1957 Unknown [id number] 1957 Unknown [id number] Unknown [id number]. [id number] Unknown MMO [id number] Social History Date Type Detail Facility Unknown if ever smoked [facility] Other Sex Assigned At Sex Assigned At Bir th [facility] Other Start: 07-29-2018 Tobacco smoking status NHIS Never smoked tobacco (finding) [facility] Start: 09-10-2024 End: 09-10-2024 Sex Female (finding) [facility] Start: 1970 Sex Assigned At Female [facility] Evaluation note 06-17-2023 Note Date & Type Note Facility 06-17-2023 Evaluation note Encounter Date Diagnosis Assessment Notes May, 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 attempted to get her in to public relations intern, but they had no openings. Ordered an allergen profile and aspergillus ab quantitative. Labs handwritten and faxed to [facility] lab. [facility] Other Evaluation note 02-24-2023 Note Date & [...] F41.1) Stable at present med/dose. Doing well. [facility] Other Evaluation note 11-26-2022 Note Date & Type Note Facility 11-26-2022 Evaluation note Encounter Date Diagnosis Assessment Notes Nov, Other obesity due to excess calories (ICD-10 - E66.09) Will refill med when due - has definately changed diet and exercise. Has done great on med and denies problems obtaining it w her insurance. Nov, Body mass index [BMI] 32.0-32.9, adult (ICD-10 - Z68.32) [facility] Other Evaluation note Note Date & Type Note Facility Evaluation note No Information [facility] Other Evaluation note Note Date & Type Note Facility Evaluation note No assessment information availa ble [facility] Work Phone: History general Narrative - Reported Note Date & Type Note Facility History general Narrative - Reported Type Medical History Dandruff in adult Medical History JAQUELIN (generalized anxiety disorde r) Surgical History wisdom teeth Hospitalization History child [facility] RADEUM Other Summary Purpose Family History Relationship Condition Age at Onset Recorded Date/T torrey mother Hypertension Unknown Advance Directives Advance Directive Response Recorded Date/ Time Advance Directives No February 03 2:35pm Chief Complaint and Reason for Visit Chief Complaint Admit Date Med f/u September 10, 2024 1 1:54am Additional Source Comments INFORMATION SOURCE (unrecogn ized section and content) DATE CREATED AUTHOR 08/24/2020 [facility] DATE CREATED AUTHOR AUTHOR'S ORGANIZ ATION 01/23/2022 [facility] dical Specialist REASON FOR VISIT (unrecogniz ed [...] BE BASED ON THE PRIMARY CLINICAL RECORDS. [facility]. provides no warranty or guarantee of the accuracy or completeness of information in this document.
[2024-11-12 08:21] LABS: Basophils Percent Auto 1.1 % (0.2-2.0); Eosinophils Percent Auto 1.1 % (0.9-7.0); Hematocrit 34.4 % (36.0-48.0); Hemoglobin 10.7 g/dL (12.0-16.0); Lymphocytes Absolute Auto 1.1 10^3/uL (1.2-3.8); Lymphocytes Percent Auto 32.7 % (20.5-60.0); Mean Corpuscular HGB Conc 31.1 g/dL (29.9-35.2); Mean Corpuscular Hemoglobin 25.5 pg (26.7-34.0); Mean Corpuscular Volume 81.9 fL (81.0-99.0); Mean Platelet Volume 9.5 fL (9.5-13.5); Monocytes Absolute Auto 0.3 10^3/uL (0.3-0.8); Monocytes Percent Auto 8.3 % (1.7-12.0); Neutrophils Percent Auto 56.8 % (43.0-75.0); Platelet Count 332 10^3/uL (150-450); Red Cell Distribution Width 16.4 % (11.0-15.0); White Blood Count 3.5 10^3/uL (4.0-11.0)
== END 2024-11-12 08:01 | disposition home or self-care (01) ==
LOC: LAB 08:01
PROVIDERS: PCP Family Medicine; Visit Provider Family Medicine
DX: D72.819 Decreased white blood cell count, unspecified (principal)
CPT/HCPCS: 36415; 80053; 80061; 82043; 82570; 82728; 83540; 83550; 84443; 84466; 84550; 85025

== ENCOUNTER 2024-12-07 07:46 | Outpatient (RCR) | payer BC, OTHER, SELFPAY ==
[2024-12-07 16:40] LABS: Basophils Percent Auto 0.7 % (0.2-2.0); Eosinophils Percent Auto 0.3 % (0.9-7.0); Hematocrit 38.1 % (36.0-48.0); Hemoglobin 11.9 g/dL (12.0-16.0); Immature Granulocytes Abs Auto 0.01 10^3/uL (0.00-0.03); Immature Granulocytes Pct Auto 0.2 % (0.0-0.5); Lymphocytes Absolute Auto 1.6 10^3/uL (1.2-3.8); Lymphocytes Percent Auto 26.1 % (20.5-60.0); Mean Corpuscular HGB Conc 31.2 g/dL (29.9-35.2); Mean Corpuscular Hemoglobin 25.5 pg (26.7-34.0); Mean Corpuscular Volume 81.8 fL (81.0-99.0); Mean Platelet Volume 9.4 fL (9.5-13.5); Monocytes Absolute Auto 0.5 10^3/uL (0.3-0.8); Monocytes Percent Auto 7.5 % (1.7-12.0); Neutrophils Absolute Auto 3.9 10^3/uL (1.4-6.5); Neutrophils Percent Auto 65.2 % (43.0-75.0); Platelet Count 370 10^3/uL (150-450); Red Blood Count 4.66 10^6/uL (4.20-5.40); Red Cell Distribution Width 18.3 % (11.0-15.0)
[2024-12-07 17:00] LABS: C Reactive Protein <0.50 mg/dL (<=0.50); Lactate Dehydrogenase 204 U/L (81-234)
[2024-12-07 17:06] LABS: Erythrocyte Sedimentation Rate 38 mm/hr (<=30)
[2024-12-07 17:47] LABS: Percent Iron Saturation 7.5 %
[2024-12-09 03:07] LABS: Vitamin B12 695 pg/mL (232-1245)
[2024-12-09 10:11] LABS: ANA Direct Negative (Negative)
[2024-12-10 12:08] LABS: Albumin 4.2 g/dL (2.9-4.4); Alpha-1-Globulin 0.3 g/dL (0.0-0.4); Alpha-2-Globulin 0.8 g/dL (0.4-1.0); Free Kappa Lt Chains,S 18.4 mg/L (3.3-19.4); Free Lambda Lt Chains,S 12.2 mg/L (5.7-26.3); Gamma Globulin 1.3 g/dL (0.4-1.8); Immunoglobulin A, Qn, Serum 235 mg/dL (87-352); Immunoglobulin G, Qn, Serum 1174 mg/dL (586-1602); Immunoglobulin M, Qn, Serum 224 mg/dL (26-217); Kappa/Lambda Ratio,S 1.51 (0.26-1.65); Protein, Total 7.7 g/dL (6.0-8.5)
[2024-12-16 10:08] LABS: Immunoglobulin E, Total 23 IU/mL (6-495)
== END 2024-12-08 08:20 | disposition home or self-care (01) ==
LOC: HEMC 07:46
PROVIDERS: PCP Family Medicine; Visit Provider Internal Medicine Hematology & Oncology
DX: D64.9 Anemia, unspecified (principal); D72.819 Decreased white blood cell count, unspecified; D50.9 Iron deficiency anemia, unspecified; K90.9 Intestinal malabsorption, unspecified; M79.10 Myalgia, unspecified site; R53.83 Other fatigue
CPT/HCPCS: 36415; 82607; 82728; 82746; 82784; 82785; 83521; 83540; 83550; 83615; 84155; 84165; 85025; 85045; 85652; 86038; 86140; 86334; G0463

== ENCOUNTER 2025-01-14 07:39 | Outpatient (RCR) | payer BC, OTHER, SELFPAY ==
[2025-01-07 09:03] VITALS: BP 121/88; PULSE 74; TEMP 36.3; O2SAT 99
[2025-01-07] MEDS: FERUMOXYTOL 510 MG in 0.9 % SODIUM CHLORIDE 100 ML 234 MG IV (09:18)
[2025-01-14 09:04] VITALS: BP 111/74; PULSE 66; TEMP 36.6; O2SAT 98
[2025-01-14] MEDS: FERUMOXYTOL 510 MG in 0.9 % SODIUM CHLORIDE 100 ML 234 MG IV (09:09)
== END 2025-01-18 07:51 | disposition home or self-care (01) ==
LOC: HEMC 07:39
PROVIDERS: PCP Family Medicine; Visit Provider Internal Medicine Hematology & Oncology
DX: D50.9 Iron deficiency anemia, unspecified (principal); D72.819 Decreased white blood cell count, unspecified; D64.9 Anemia, unspecified; K90.9 Intestinal malabsorption, unspecified
CPT/HCPCS: 96365; G0463; Q0138

== ENCOUNTER 2025-02-24 14:46 | Outpatient (OUT) | payer BC, OTHER, SELFPAY ==
--- OUTSIDE RECORDS SUMMARY | 2024-12-28 05:15 | XMS_ITS ---
Author Organization The [facility] in [place] Address [address] [place] [address] Care Team Providers Care Assistant Football Coach Name Role Phone -None, Unknown Primary Care Provider Keiko Hayes [phone] REASON FOR VISIT MD Encounters Encounter Location Date Provider Diagnosis [facility] [address] [place] [address] 12/28/2024 Keiko Barba Plan Of Treatment Next Appt Details Provider Name:Keiko Barba , 03/01/2025 10:00:00 AM, [address] [place], [address], Progress Notes * SOREN ROD EDOB:1970 (54 yo F)Acc No.[id number]:12/28/2024 UNLOCKED PROGRESS NOTE Progress Notes Patient: SOREN ZAYAS Provider: Sonia Barba M.D. :1970 A ge:54 Y S ex:Female Date:12/28/2024 Address:[facility] [address] [place], [id number] Pcp:Unknown -None Subjective: * Chief Complaints: * 1 . MD. * Medical History: Objective: * Vitals: Assessment: Plan: * Treatment: * * Electronic signature of Alistair Barba MD, [id number] on 02/24/2025 at 02:51 PM EDT Sign off status: Pending Visit Status: V OICEMSG (Voice) * Provider: Sonia Barba M.D. Date: 0 12/28/2024 Generated for Marc clinton/Naomi/Marlenitting on: 0 02/24/2025 02:51 PM EDT
--- OUTSIDE RECORDS SUMMARY | 2025-01-07 05:00 | XMS_ITS ---
Author Organization The [facility] in [place] Address [address] [place] [address] Care Team Providers Care Color Grinder Name Role Phone -None, Unknown Primary Care Provider Keiko Hayes [phone] REASON FOR VISIT Ferumoxytol (Feraheme -Non-ESRD) Encounters Encounter Location Date Provider Diagnosis [facility] Oncology [address] [place] [address] 01/07/2025 Keiko Barba Plan Of Treatment Next Appt Details Provider Name:Keiko Barba , 03/01/2025 10:00:00 AM, [address] [place], [address], Progress Notes * SOREN ROD EDOB:1970 (54 yo F)Acc No.[id number]:01/07/2025 UNLOCKED PROGRESS NOTE Progress Note Patient: Nathalia SOREN VANG Provider: Sonia Barba M.D. :1970 A ge:54 Y S ex:Female Date:01/07/2025 Address:[facility] [address] [place], [place] Pcp:Unknown -None Subjective: * Chief Complaints: * 1 . Ferumoxytol (Feraheme -Non-ESRD). * Medical History: Objective: * Vitals: Assessment: Plan: * Treatment: * * Electronic signature of Alistair Barba MD, [id number] on 02/24/2025 at 02:51 PM EDT Sign off status: Pending Visit Status: P EN (Pending) * Provider: Sonia Barba M.D. Date: 0 01/07/2025 Generated for Marc lcinton/Naomi/Kirk on: 02/24/2025 02:51 PM EDT
--- OUTSIDE RECORDS SUMMARY | 2025-01-14 05:00 | XMS_ITS ---
Author Organization The [facility] in [place] Address [address] [place] [address] Care Team Providers Care Brick Pitcher Name Role Phone -None, Unknown Primary Care Provider Keiko Hayes [phone] REASON FOR VISIT CL1 Encounters Encounter Location Date Provider Diagnosis The [facility] On[facility] [address] [place] [address] 01/14/2025 Keiko Barba Plan Of Treatment Next Appt Details Provider Name:Keiko Barba , 03/01/2025 10:00:00 AM, [address] [place], [address], Progress Notes * SOREN ROD EDOB:1970 (54 yo F)Acc No.[id number]:01/14/2025 UNLOCKED PROGRESS NOTE Progress Note Patient: SOREN ZAYAS Provider: Sonia Barba M.D. :1970 A ge:54 Y S ex:Female Date:01/14/2025 Address:[facility] [address] [place], [place] Pcp:Unknown -None Subjective: * Chief Complaints: * 1 . CL1. * Medical History: Objective: * Vitals: Assessment: Plan: * Treatment: * * Electronic signature of Alistair Barba MD, [id number] on 02/24/2025 at 02:50 PM EDT Sign off status: Pending Visit Status: P EN (Pending) * Provider: Sonia Barba M.D. Date: 0 01/14/2025 Generated for Marc clinton/Naomi/Marlenitting on: 0 02/24/2025 02:50 PM EDSusi
--- OUTSIDE RECORDS SUMMARY | 2025-02-24 14:50 | XMS_ITS | Clinical Summary ---
Author Organization [facility] Address [address] [facility] [place] [address] Care Team Providers Care Club Car Attendant Name Role Phone Unavailable Primary Care Provider Unavailabl e Allergies Active Allergy Reactions Criticality Noted Date Comments Sulfa Antibiotics Hives,Swelling Medium 10/02/2011 Trimethoprim Unknown 12/08/2024 Medications Levonorgestrel (LILETTA, 52 MG, IU) by Intrauterine route Active Encounters Date Type Department Care Team Description 12/08/2024 2:00 PM EDT Office Visit [facility] [address] [facility] [address] [place] [address] Calvin Garay MD Well woman exam with routine gynecological exam (Primary Dx); Cervical cancer screening; Screening for HPV (human papillomavirus); Other screening mammogram; Intrauterine device surveillance 12/08/2024 Orders Only [facility] [address] [facility] [address] [place] [address] Calvin Garay MD 12/08/2024 Bamboo flowsheet [facility] [address] [facility] [address] [place] [address] Calvin Garay MD 12/08/2024 Travel from Last 3 Months Family History Medical History Relation Name Comments Cancer Father Hypertension Mother Cancer Paternal Grandfather Esophag us Relation Name Status Comments Father Alive Mother Alive Paternal Grandfather Social History Tobacco Use Types Packs/Day Years Used Date Smoking Tobacco: Never Smokeless Tobacco: Never Tobacco Cessation:Counseling Given: Not Answered Alcohol Use Standard Drinks/Week Comments Yes 0 (1 standard drink = 0.6 oz pure alcohol) Alcohol: 1-2 drinks/monthly or less . Caffeine: 1-2 cups/day Comments No Sex and Gender Information Value Date Recorded Sex Assigned at Not on file Legal Sex Female 7:24 PM EDT Gender Identity Not on file Sexual Orientation Not on file Last Filed Vital Signs Vital Sign Reading Time Taken Comments Blood Pressure 124/76 12/08/2024 2:00 PM EDT Pulse - - Temperature - - Respiratory Rate - - Oxygen Saturation - - Inhaled Oxygen Concentration - - Weight 83 kg (183 lb) 12/08/2024 2:00 PM EDT Height 161.3 cm (5' 3.5 ) 09/16/2022 12:00 PM ES T Body Mass Index 31.91 09/16/2022 12:00 PM EST Plan of Treatment Upcoming Encounters Date Type Department Care Team (Late st Contact Info) Description 12/14/2025 1:45 PM EDT Office Visit [facility] [address] [facility] [address] [place] [phone] Calvin Garay MD [address] [facility] [address] [place] [address] Health Maintenance Due Date Last Done Comments CT Colonography 1972 Colonoscopy 1972 Colorectal Cancer Screening 1972 FIT-DNA 1972 FIT 1972 FOBT 1972 Sigmoidoscopy 1972 Pap Smear 01/16/2024 01/15/2021 Influenza Vaccine (Season Ended) 2025 Mammogram 12/08/2025 12/08/2024, 12/25, 01/15/2021, Additional history exists Cervical Cancer Screening 12/08/2029 HPV/Cotest 12/08/2029 12/08/2024 Procedures Procedure Name Priority Date/Time Associated Diagnosis Comments MAMMOGRAM* Routine 12/08/2024 2:23 PM EDT IGP, APT HPV,RFX 16/18,45 Routine 12/08/2024 12:00 AM EDT Cervical cancer screening Screening for HPV (human papillomavirus) THINPREP TIS PAP AND HPV MRNA E6/E7 REFLEX HPV 16,18/45 ([id number]) Routine 01/15/2021 from Last 3 Months or Most Recently Relevant to Health Maintenance Results * MAMMOGRAM* (12/08/2024 2:23 PM EDT) Anatomical Region Laterality Modality Radiographic Ami ging Calvin Garay MD IMG XR PROCEDURES Final Result * IGP, APT HPV,RFX 16/18,45 (12/08/2024 12:00 AM EDT) Diagnosis: Comment [facility] Comment: NEGATIVE FOR INTRAEPITHELIAL LESION OR MALIGNANCY. CELLULAR CHANGES ASSOCIATED WITH ATROPHY ARE PRESENT. Specimen Adequacy: Comment [facility] Comment: Satisfactory for evaluation. Endocervical and/or squamous metaplastic cells (endocervical component) are present. Clinician Provided ICD10: Comment [facility] Comment: Z12.4 Z11.51 Performed By: Comment [facility] Comment:Ronda Holden, Cyto technologist (ASCP) Cyto Comments . [facility] Note: Comment [facility] Comment: The Pap smear is a screening test designed to aid in the detection of premalignant and malignant conditions of the uterine cervix. It is not a diagnostic procedure and should not be used as the sole means of detecting cervical cancer. Both false-positive and false-negative reports do occur. Test Methodology: Comment [facility] Comment: This liquid based ThinPrep(R) pap test was screened with the use of an image guided system. HPV Aptima Negative Negative [facility] Comment: This nucleic acid amplification test detects fourteen high-risk HPV types (16,18,31,33,35,39,45,51,52,56,58,59,66,68) without differentiation. Vaginal Fluid 12/08/2024 12/09/2024 Narrative [facility] - 12/11/2024 5:06 PM EDT Performed at: - [address] [id number] Musical Engineer: Jelly Black MD, Phone: [phone] Performed at: - [address] [id number] Musical Engineer: Jelly Black MD, Phone: [phone] Specimen Comment: No. of containers..01 ThinPrep Vial us Calvin Garay MD LAB BLOOD ORDERABLES Final Res ult [facility] * THINPREP TIS PAP AND HPV MRNA E6/E7 REFLEX HPV 16,18/45 ([id number]) (01/15/2021) CLINICAL INFORMATION: None given [facility] LMP: AMENORRHEA WITH IUD [facility] PREV. PAP: NONE GIVEN [facility] PREV. BX: NONE GIVEN [facility] SOURCE: Cervix [facility] STATEMENT OF ADEQUACY: SATISFACTORY FOR EVALUATION [facility] INTERPRETATION/RES ULT: SEE COMMENT [facility] Comment: Negative for intraepithelial lesion or malignancy. Atrophic pattern; predominantly parabasal cells COMMENT: SEE COMMENT [facility] Comment: This Pap test has been evaluated with computer assisted technology. Parabasal cells in smears that lack maturation due to atrophy or other hormonal reasons cannot be differentiated from transformation zone cells. Accordingly, presence or absence of endocervical or transformation zone components cannot be reported in this patient. B2B ACCOUNT EXECUTIVE: SEE COMMENT [facility] Comment: YOLI SPANN(ASCP) CT screening location: [place] [address]. COMMENT SEE COMMENT [facility] Comment: EXPLANATORY NOTE: The Pap is a screening test for cervical cancer. It is not a diagnostic test and is subject to false negative and false positive results. It is most reliable when a satisfactory sample, regularly obtained, is submitted with relevant clinical findings and history, and when the Pap result is evaluated along with historic and current clinical information. HPV MRNA E6/E7 Not Detected Not Detected [facility] Comment: Methodology: Take Up Operator-Mediated Amplification This assay detects E6/E7 viral messenger RNA (mRNA) from 14 high-risk HPV types (16,18,31,33,35,39,45,51,52,56,58,59,66,68). The analytical performance characteristics of this assay have been determined by [employer]. The modifications have not been cleared or approved by the FDA. This assay has been validated pursuant to the CLIA regulations and is used for clinical purposes. For additional information, please refer to http://education.CareOne.eDealya/faq/JVL863a2 (This link if provided for information/ educational purposes only.) 01/15/2021 us Calvin Garay MD [facility] Final Result [facility] from Last 3 Months or Most Recently Relevant to Health Maintenance Insurance [facility] [id number]
--- OUTSIDE RECORDS SUMMARY | 2025-02-24 14:50 | XMS_ITS | Clinical Summary ---
Author Organization [facility] Address [address] [place] [address] Care Team Providers Care Hand Cementer Name Role Phone iLseth Mckinney MD Primary Care Provider [phone] Allergies Active Allergy Reactions Criticality Noted Date Comments Robertson Swelling Medium 03/17/2013 Sulfa (Sulfonamide Antibiotics) Hives,Swelling Medium 10/02/2011 Medications levonorgestrel (MIRENA) 20 mcg/24 hr INTRAUTERINE IUD 1 Each one time only. 0 2 Active ergocalciferol, Vitamin D2, (VITAMIN D) 400 unit ORAL Cap Take 1 capsule by mouth once daily. 0 2 Active alpha tocopheryl acetate 400 unit ORAL capsule Take 1 capsule by mouth once daily. 0 2 Active multivitamin ORAL tablet Take 1 tablet by mouth once daily. 0 2 Active niacin 500 mg ORAL tablet Take 1 tablet by mouth daily at bedtime. 0 2 Active Glucosamine Sulfate (GLUCOSAMINE) 500 mg ORAL Tab Take 1 tablet by mouth once daily. 0 2 Active Active Problems Problem Noted Date Diagnosed Date Diffuse cystic mastopathy 10/02/2011 Mastodynia 10/02/2011 Social History Tobacco Use Types Packs/Day Years Used Date Smoking Tobacco: Never Assessed Comments Unknown Sex and Gender Information Value Date Recorded Sex Assigned at Not on file Legal Sex Female 9:57 AM EST Gender Identity Not on file Sexual Orientation Not on file Last Filed Vital Signs Vital Sign Reading Time Taken Comments Blood Pressure - - Pulse - - Temperature - - Respiratory Rate - - Oxygen Saturation - - Inhaled Oxygen Concentration - - Weight 82.1 kg (181 lb) 10/02/2011 11:25 AM EST Height 160 cm (5' 3 ) 10/02/2011 11:25 AM EST Body Mass Index 32.06 10/02/2011 11:25 AM EST Plan of Treatment Health Maintenance Due Date Last Done Comments Anxiety Screening 1990 Depression Screening 1990 HIV Screening 1990 Hepatitis C Screening 1990 DTaP,Tdap,Td Vaccine (1 - Tdap) 1991 Hepatitis B Vaccine (1 of 3 - 19+ 3-dose series) 10/18 Cervical Cancer Screening 1993 Mammogram Screening 03/17/2014 03/17/2013 CT Colonography 2017 Cologuard (FIT-DNA) 2017 Colonoscopy 2017 Colorectal Cancer Screening 2017 Diabetes Screening 2017 Fecal Occult Blood 2017 Lipid Screening 2017 Sigmoidoscopy 2017 Pneumococcal Vaccine: 50+ (1 of 1 - PCV) 2022 Shingrix Vaccine (1 of 2) 2022 Covid-19 Vaccine (1 - season) 2024 Influenza Vaccine (Season Ended) 2025 Procedures Procedure Name Priority Date/Time Associated Diagnosis Comments MAMM CLINIC SCREEN DIG CAD JACOB Routine 03/17/2013 11:29 AM EDT Diffuse cystic mastopathy from Last 3 Months or Most Recently Relevant to Health Maintenance Results * MAMM CLINIC SCREEN DIG CAD JACOB (03/17/2013 11:29 AM EDT) Tuft Machine Operator * * *Final Report* * * DATE OF EXAM: Mar 17 2013 11:29AM ALEKS [id number] - [facility] SCREEN DIG CAD JACOB / PROCEDURE REASON: Diffuse cystic mastopathy * * * Physician Interpretation * * * #[id number] - [facility] SCREEN DIG CAD JACOB # BILATERAL DIGITAL SCREENING MAMMOGRAM WITH CAD: 03/17/2013 HISTORY: Clinic Screening Mammogram - patient reports NO breast symptoms. RESULT: TECHNIQUE: The study was acquired using full field digital technology and interpreted from soft copy. Current study was also evaluated with a Computer Aided Detection (CAD). Comparison is made to exams dated: 06/20/2011 mammogram, 10/02/2011 mammogram and 10/02/2011 ultrasound - [facility]. There are scattered fibroglandular elements in both breasts. No significant masses, calcifications, or other findings are seen in either breast. There has been no significant interval change. IMPRESSION: NEGATIVE There is no mammographic evidence of malignancy. A 1 year screening mammogram is recommended. Wanda Silva M.D. sm/penrad:03/17/20 13 11:33:02 Peripheral Edp Equipment Operator: Celina MERCADO)(Temo), [facility] letter sent: Normal over 40 Mammogram BI-RADS: 1 Negative Gas Mask Assembler: PSC Transcribe Date/Time: Mar 17 2013 11:33A Dictated by : WANDA SILVA MD This examination was interpreted and the report reviewed and electronically signed by: WANDA SILVA MD On Mar 17 2013 11:33AM DIVISION OF RADIOLOGY Anatomical Region Laterality Modality Other 03/17/2013 11:2 9 AM EDT Vielka Riley MD MAMMOGRAPHY Final Result from Last 3 Months or Most Recently Relevant to Health Maintenance Insurance [facility] Care Teams Hand Cementer Relationship Specialty Start Date End Date Liseth Mckinney MD [address] [facility] [place] [id number] PCP - General Family Medicine 10/02/11
--- OUTSIDE RECORDS SUMMARY | 2025-02-24 14:50 | XMS_ITS | Encounter Summary ---
Author Organization [facility] Address [address] [place] [address] Care Team Providers Care Hospitality Housekeeper Name Role Phone Unavailable Primary Care Provider Unavailabl e Encounter Details Date Type Department Care Team (Late st Contact Info) Description 01/21/2023 Abstract [facility] OB [address] [facility] [address] [place] [phone] Calvin Garay MD [address] [facility] [address] [place] [address] Social History Tobacco Use Types Packs/Day Years Used Date Smoking Tobacco: Never Alcohol Use Standard Drinks/Week Comments Yes 0 (1 standard drink = 0.6 oz pure alcohol) Alcohol: 1-2 drinks/monthly or less . Caffeine: 1-2 cups/day Comments Unknown Sex and Gender Information Value Date Recorded Sex Assigned at Not on file Legal Sex Female 7:24 PM EDT Gender Identity Not on file Sexual Orientation Not on file documented as of this encounter Plan of Treatment Upcoming Encounters Date Type Department Care Team (Late st Contact Info) Description 12/14/2025 1:45 PM EDT Office Visit [facility] [address] [facility] [address] [place] [address] Calvin Garay MD [address] [facility] [address] [place] [address] documented as of this encounter Visit Diagnoses Not on filedocumented in this encounter
--- OUTSIDE RECORDS SUMMARY | 2025-02-24 14:50 | XMS_ITS | Encounter Summary ---
Author Organization [facility] Address [address] [facility] [place] [address] Care Team Prov[address] Care Ct Technician Name Role Phone Unavailable Primary Care Provider Unavailabl e Encounter Details Date Type Department Care Team (Late Contact Info) Description 12/08/2024 Orders Only [facility] [address] [facility] [address] [place] [phone] Calvin Garay MD [address] [facility] [address] [place] [address] Social History Tobacco Use Types Packs/Day Years Used Date Smoking Tobacco: Never Smokeless Tobacco: Never Alcohol Use Standard Drinks/Week Comments [...] Office Visit [facility] [address] [facility] [address] [place] [address] Calvin Garay MD [address] [facility] [address] [place] [address] documented as of this encounter Procedures Procedure Name Priority Date/Time Associated Diagnosis Comments MAMMOGRAM* Routine 12/08/2024 2:23 PM EDT documented in this encounter Results * MAMMOGRAM* (12/08/2024 2:23 PM EDT) Anatomical Region Laterality Modality Radiographic Ami ging us Calvin Garay MD IMG XR PROCEDURES Final Result documented in this encounter Visit Diagnoses Not on filedocumented in this encounter
--- OUTSIDE RECORDS SUMMARY | 2025-02-24 14:51 | XMS_ITS | Patient Health Record ---
Author Organization [facility] Address [address] [place] [address] Care Team Providers Care Towel Distributor Name Role Phone -None, Unknown Primary Care Provider Keiko Hayes Unavailable [phone] Results Component Value Reference Range Notes CRP (Not yet reviewed by pro vider) Interpretation: Performing Lab: Notes/Report: [facility] , C Reactive Protein <0.50 <=0.50 mg/dL Performing Lab: see note ML - [facility] LB LDH (Not yet reviewed by pro vider) Interpretation: Performing Lab: Notes/Report: [facility] , Lactate Dehydrogenase 204 81-234 U/L Performing Lab: see note ML - [facility] LB Erythrocyte Sedimentation Ra te (Not yet reviewed by provider) Interpretation: Performing Lab: Notes/Report: [facility] , Erythrocyte Sedimentation Rate 38 <=30 mm/hr Performing Lab: see note - [facility] LB SEVERO w/Reflex (Not yet review ed by provider) Interpretation: Performing Lab: Notes/Report: [facility] , SEVERO Direct Negative Negative Performed at: - [facility] [address] [id number] T[employer] Building Supervisor: Mohan Obrien PhD, Phone: [phone] Performing Lab: see note LC - [facility] LB LIZZIE, PE and FLC, Serum (Not yet reviewed by provider) Interpretation: Performing Lab: Notes/Report: [facility] , Immunoglobulin G, Qn, Serum 7287 876-1430 mg/d L Immunoglobulin A, Qn, Serum 235 87-352 mg/dL Immunoglobulin M, Qn, Serum 224 26-217 mg/dL Protein, Total 7.7 6.0-8.5 g/dL Albumin 4.2 2.9-4.4 g/dL Eopwx-8-Jwddqxpm 0.3 0.0-0.4 g/dL Gdjew-5-Lkvfzyjb 0.8 0.4-1.0 g/dL Beta Globulin 1.2 0.7-1.3 g/dL Gamma Globulin 1.3 0.4-1.8 g/dL M-[place] Not Observed Not Observed g/dL Globulin, Total 3.5 2.2-3.9 g/dL A/G Ratio 1.3 0.7-1.7 Immunofixation Result, Serum Comment . No monoclonality det ected. Please note: Comment . Protein electrophoresis scan will follow via computer, mail, or retread builder delivery. Free Hodges Lt Chains,S 18.4 3.3-19.4 mg/L Free Lambda Lt Chains,S 12.2 5.7-26.3 mg/L Hodges/Lambda Ratio,S 1.51 0.26-1.65 Performed at: - [address] [id number] [employer] Building Supervisor: Mohan Obrien PhD, Phone: [phone] Performing Lab: see note - [facility] LB IRON AND TIBC (Not yet revie wed by provider) Interpretation: Performing Lab: Notes/Report: [facility] , Iron 32.0 50.0-170.0 ug/dL Total Iron Binding Capacity 428.0 250.0-450.0 u g/dL Percent Iron Saturation 7.5 Performing Lab: see note - [facility] LB IMMUNOGLOBULIN E, TOTAL (Not yet reviewed by provider) Interpretation: Performing Lab: Notes/Report: [facility] , Immunoglobulin E, Total 23 6-495 IU/mL Performed at: - [facility] [id number] [employer] Building Supervisor: Leticia Fry MD, Phone: [phone] Performing Lab: see note - [facility] LB FOLATE (Not yet reviewed by provider) Interpretation: Performing Lab: Notes/Report: [facility] , Folate 22.50 8.60-58.90 ng/mL Performing Lab: see note - [facility] LB FERRITIN (Not yet reviewed b y provider) Interpretation: Performing Lab: Notes/Report: [facility] , Ferritin 11.0 8.0-252.0 ng/mL Performing Lab: see note ML - [facility] LB CBC AUTO DIFF (Not yet revie wed by provider) Interpretation: Performing Lab: Notes/Report: [facility] , White Blood Count 6.0 4.0-11.0 10 3/uL Red Blood Count 4.66 4.20-5.40 10 6/uL Hemoglobin 11.9 12.0-16.0 g/dL Hematocrit 38.1 36.0-48.0 % Mean Corpuscular Volume 81.8 81.0-99.0 fL Mean Corpuscular Hemoglobin 25.5 26.7-34.0 pg Mean Corpuscular HGB Conc 31.2 29.9-35.2 g/dL Red Cell Distribution Width 18.3 11.0-15.0 % Platelet Count 370 150-450 10 3/uL Mean Platelet Volume 9.4 9.5-13.5 fL Neutrophils Percent Auto 65.2 43.0-75.0 % Lymphocytes Percent Auto 26.1 20.5-60.0 % Monocytes Percent Auto 7.5 1.7-12.0 % Eosinophils Percent Auto 0.3 0.9-7.0 % Basophils Percent Auto 0.7 0.2-2.0 % Immature Granulocytes Pct Auto 0.2 0.0-0.5 % Neutrophils Absolute Auto 3.9 1.4-6.5 10 3/uL Lymphocytes Absolute Auto 1.6 1.2-3.8 10 3/uL Monocytes Absolute Auto 0.5 0.3-0.8 10 3/uL Eosinophils Absolute Auto 0.0 0.0-0.7 10 3/uL Basophils Absolute Auto 0.0 0.0-0.1 10 3/uL Immature Granulocytes Abs Auto 0.01 0.00-0.03 10 3/uL Performing Lab: see note ML - [facility] LB Reticulocyte Pct Auto (Not y et reviewed by provider) Interpretation: Performing Lab: Notes/Report: [facility] , Reticulocyte Pct Auto 0.80 0.60-3.10 % Performing Lab: see note - [facility] LB Vitamin B12 (Not yet reviewe d by provider) Interpretation: Performing Lab: Notes/Report: [facility] , Vitamin B12 894 918-1950 pg/mL Performed at: - [facility] [address] [id number] [employer] Building Supervisor: Mohan Obrien PhD, Phone: [phone] Performing Lab: see note LC - [facility] LB Reason For Referral No Information Encounters Encounter Location Date Provider Diagnosis [facility] On[facility] [address] [place] [facility] [place] [address] [facility] [address] [place] [facility] [place] [address] [facility] [address] [place] [facility] [place] [address] [facility] [address] [place] [facility] [place] [address] 12/28/2024 Keiko Freda Plan Of Treatment Pending Test Test Name Order Date CBC AUTO DIFF 12/07/2024 CRP 12/07/2024 FERRITIN 12/07/2024 FOLATE 12/07/2024 IMMUNOGLOBULIN E, TOTAL 12/07/2024 IRON AND TIBC 12/07/2024 LDH 12/07/2024 Erythrocyte Sedimentation Rate SEVERO w/Reflex 12/07/2024 LIZZIE, PE and FLC, Serum 12/07/2024 Reticulocyte Pct Auto 12/07/2024 Vitamin B12 12/07/2024 Next Appt Details Provider Name:Keiko Barba , 03/01/2025 10:00:00 AM, [address] [place], [address], Insurance Providers Payer Name Payer Address Payer Phone Subscriber Number Group Number Insured Name Patient Relationship to Insured Coverage Start Date Coverage End Date [facility] [address] [place] [address] [id number] SOREN ROD Self - patient is the insured 5
[2025-02-24 15:18] LABS: Anion Gap 14.4; Blood Urea Nitrogen 16.0 mg/dL (7.0-18.0); Calcium 9.4 mg/dL (8.5-10.1); Carbon Dioxide 27.4 mmol/L (21.0-32.0); Chloride 105 mmol/L (98-107); Estimated GFR (African America >60 (>=60 mL/min/1.73m^2); Estimated GFR (Non-African Ame >60 (>=60 mL/min/1.73m^2); Glucose 100 mg/dL (74-106); Potassium 3.8 mmol/L (3.5-5.1); Sodium 143 mmol/L (136-145)
[2025-02-24 15:29] LABS: Iron 81.0 ug/dL (50.0-170.0); Percent Iron Saturation 25.6 %; Total Iron Binding Capacity 317.0 ug/dL (250.0-450.0)
[2025-02-24 15:42] LABS: Hematocrit 41.4 % (36.0-48.0); Hemoglobin 14.0 g/dL (12.0-16.0); Immature Granulocytes Abs Auto 0.01 10^3/uL (0.00-0.03); Immature Granulocytes Pct Auto 0.2 % (0.0-0.5); Lymphocytes Absolute Auto 1.6 10^3/uL (1.2-3.8); Mean Corpuscular HGB Conc 33.8 g/dL (29.9-35.2); Mean Corpuscular Hemoglobin 29.7 pg (26.7-34.0); Mean Corpuscular Volume 87.7 fL (81.0-99.0); Platelet Count 242 10^3/uL (150-450); Red Blood Count 4.72 10^6/uL (4.20-5.40); White Blood Count 5.0 10^3/uL (4.0-11.0)
[2025-02-24 15:52] LABS: Ferritin 92.0 ng/mL (8.0-252.0)
[2025-02-25 04:07] LABS: Vitamin B12 666 pg/mL (232-1245)
== END 2025-02-24 14:47 | disposition home or self-care (01) ==
PROVIDERS: PCP Family Medicine; Visit Provider Internal Medicine Hematology & Oncology
DX: D64.9 Anemia, unspecified (principal); D72.819 Decreased white blood cell count, unspecified; D50.9 Iron deficiency anemia, unspecified; K90.9 Intestinal malabsorption, unspecified; D69.6 Thrombocytopenia, unspecified; D50.0 Iron deficiency anemia secondary to blood loss (chronic)
CPT/HCPCS: 36415; 80048; 82306; 82607; 82728; 83540; 83550; 85025

== ENCOUNTER 2025-03-01 07:36 | Outpatient (RCR) | payer BC, OTHER, SELFPAY | END 2025-03-02 08:09 | disposition home or self-care (01) | LOC: HEMC 07:36 | PROVIDERS: PCP Family Medicine; Visit Provider Internal Medicine Hematology & Oncology | DX: D64.9 Anemia, unspecified (principal); D72.819 Decreased white blood cell count, unspecified; D50.9 Iron deficiency anemia, unspecified; K90.9 Intestinal malabsorption, unspecified | CPT/HCPCS: G0463 ==

== ENCOUNTER 2025-07-07 07:40 | Outpatient (OUT) | payer BC, OTHER, SELFPAY ==
--- OUTSIDE RECORDS SUMMARY | 2024-12-07 09:30 | XMS_ITS ---
Author Organization The [facility] in [place] Address [address] [place] [address] Care Team Providers Care Data Specialist Name Role Phone -None, Unknown Primary Care Provider Keiko Hayes Unavailable [phone] REASON FOR VISIT MD [place] PT Hem Encounters Encounter Location Date Provider Diagnosis [facility] On[facility] [address] [place] [address] 12/07/2024 Keiko Barba Plan Of Treatment Next Appt Details Provider Name:Keiko Barba , 07/12/2025 01:15:00 PM, [address] [place], [address], Progress Notes * SOREN ROD EDOB:1970 (54 yo F)Acc No.[id number]:12/07/2024 UNLOCKED PROGRESS NOTE Progress Notes Patient: KLEBER ZAYASAGUSTÍN Braga :?Keiko Barba M.D.:1970???Age:54 Y ???Sex:FemaleDate:12/07/2024Phone:[phone]:[address] [place], [id number]:Unknown -None Subjective: * Chief Complaints: * 1 . New PT Hem. * Medical History: Objective: * Vitals: Assessment: Plan: * Treatment: * * Electronic signature of Keiko Barba MD, [id number] on 07/07/2025 at 07:45 AM ESTSign off status: PendingVisit Status:?ANSPH (Voice) * Provider: Sonia Barba M.D. Date: 0 12/07/2024 Generated for Printing/Faxing/eTransmitting on:?07/07/2025 07:45 AM EST
--- OUTSIDE RECORDS SUMMARY | 2024-12-28 04:15 | XMS_ITS ---
Author Organization The [facility] in [place] Address [address] [place] [place] [address] Care Team Providers Care Biscuit Packer Name Role Phone -None, Unknown Primary Care Provider Keiko Hayes Unavailable [phone] REASON FOR VISIT MD Encounters Encounter Location Date Provider Diagnosis [facility] [address] [place] [address] 12/28/2024 Keiko Barba Plan Of Treatment Next Appt Details Provider Name:Keiko Barba , 07/12/2025 01:15:00 PM, [address] [place], [address], Progress Notes * SOREN ROD EDOB:1970 (54 yo F)Acc No.[id number]:12/28/2024 UNLOCKED PROGRESS NOTE Progress Notes Patient: SOREN ZAYAS :?Keiko Barba M.D.:1970???Age:54 Y ???Sex:FemaleDate:12/28/2024Phone:[phone]:[address] [place], [id number]:Unknown -None Subjective: * Chief Complaints: * 1 . MD. * Medical History: Objective: * Vitals: Assessment: Plan: * Treatment: * * Electronic signature of Keiko Barba MD, [id number] on 07/07/2025 at 07:45 AM ESTSign off status: PendingVisit Status:?VOICEMSG (Voice) * Provider: Sonia Barba M.D. Date: 0 12/28/2024 Generated for Printing/Faxing/eTransmitting on:?07/07/2025 07:45 AM EST
--- OUTSIDE RECORDS SUMMARY | 2025-01-07 04:00 | XMS_ITS ---
Author Organization The [facility] in [place] Address [address] [place] [address] Care Team Providers Care Clinical Technician Name Role Phone -None, Unknown Primary Care Provider Keiko Hayes [phone] REASON FOR VISIT Ferumoxytol (Feraheme -Non-ESRD) Encounters Encounter Location Date Provider Diagnosis The [facility] Oncology [address] [place] [address] 01/07/2025 Keiko Barba Plan Of Treatment Next Appt Details Provider Name:Keiko Barba , 07/12/2025 01:15:00 PM, [address] [place], [address], Progress Notes * SOREN ROD EDOB:1970 (54 yo F)Acc No.[id number]:01/07/2025 UNLOCKED PROGRESS NOTE Progress Note Patient: Nathalia SOREN VANG :?Keiko Barba M.D.:1970???Age:54 Y ???Sex:FemaleDate:01/07/2025Phone:[phone]:[address], [place]Urw:Unknown -None Subjective: * Chief Complaints: * 1 . Ferumoxytol (Feraheme -Non-ESRD). * Medical History: Objective: * Vitals: Assessment: Plan: * Treatment: * * Electronic signature of Keiko Barba MD, [id number] on 07/07/2025 at 07:45 AM ESTSign off status: PendingVisit Status:?PEN (Pending) * Provider: Sonia Barba M.D. Date: 0 01/07/2025 Generated for Printing/Faxing/eTransmitting on:?07/07/2025 07:45 AM EST
--- OUTSIDE RECORDS SUMMARY | 2025-01-14 04:00 | XMS_ITS ---
Author Organization The [facility] in [place] Address [address] [place] [address] Care Team Providers Care Iron Launder Operator Name Role Phone -None, Unknown Primary Care Provider Keiko Hayes Unavailable [phone] REASON FOR VISIT CL1 Encounters Encounter Location Date Provider Diagnosis The [facility] Oncology [address] [place] [address] 01/14/2025 Keiko Barba Plan Of Treatment Next Appt Details Provider Name:Keiko Barba , 07/12/2025 01:15:00 PM, [address] [place], [address], Progress Notes * SOREN ROD EDOB:1970 (54 yo F)Acc No.[id number]:01/14/2025 UNLOCKED PROGRESS NOTE Progress Note Patient: SOREN ZAYAS :?Keiko Barba M.D.:1970???Age:54 Y ???Sex:FemaleDate:01/14/2025Phone:[phone]:[address], [place]Cud:Unknown -None Subjective: * Chief Complaints: * 1 . CL1. * Medical History: Objective: * Vitals: Assessment: Plan: * Treatment: * * Electronic signature of Keiko Barba MD, [id number] on 07/07/2025 at 07:45 AM ESTSign off status: PendingVisit Status:?PEN (Pending) * Provider: Sonia Barba M.D. Date: 0 01/14/2025 Generated for Printing/Faxing/eTransmitting on:?07/07/2025 07:45 AM EST
--- OUTSIDE RECORDS SUMMARY | 2025-03-01 05:00 | XMS_ITS ---
Author Organization [facility] [place] Address [address] [place] [place] [address] Care Team Providers Care Lay Out Helper Name Role Phone -None, Unknown Primary Care Provider Keiko Hayes Unavailable [phone] REASON FOR VISIT MD Encounters Encounter Location Date Provider Diagnosis [facility] Oncology [address] [place] [address] 03/01/2025 Keiko Barba Plan Of Treatment Next Appt Details Provider Name:Keiko Babra , 07/12/2025 01:15:00 PM, [address] [place], [address], Progress Notes * SOREN ROD EDOB:1970 (54 yo F)Acc No.[id number]:03/01/2025 UNLOCKED PROGRESS NOTE Progress Notes Patient: SOREN ZAYAS :?Keiko Barba M.D.:1970???Age:54 Y ???Sex:FemaleDate:03/01/2025Phone:[phone]:[address] [place], [place]Bii:Unknown -None Subjective: * Chief Complaints: * 1 . MD. * Medical History: Objective: * Vitals: Assessment: Plan: * Treatment: * * Electronic signature of Keiko Barba MD, [id number] on 07/07/2025 at 07:46 AM ESTSign off status: PendingVisit Status:?ANSPH (Voice) * Provider: Sonia Barba M.D. Date: 0 03/01/2025 Generated for Printing/Faxing/eTransmitting on:?07/07/2025 07:46 AM EST
--- OUTSIDE RECORDS SUMMARY | 2025-07-07 07:45 | XMS_ITS | Clinical Summary ---
Author Organization [facility] Healthcare Address [address] [facility] [place] [address] Care Team Providers Care Sort Manager Name Role Phone Unavailable Primary Care Provider Unavailabl e Allergies Active AllergyReactionsCriticalityNoted DateCommentsSulfa AntibioticsHives, ImkumcauVymhch72/08/3763PjxlgxhmtrgxVdshpes97/16/2025 Medications MedicationSigDispense QuantityRefillsLast FilledStart DateEnd DateStatus Levonorgestrel (LILETTA, 52 MG, IU) by Intrauterine routeActive Family History Medical HistoryRelationNameCommentsCancerFatherHypertensionMotherCancerPaternal GrandfatherEsophagusRelationNameStatusCommentsFatherAliveMotherAlivePaternal Grandfather Social History Tobacco UseTypesPacks/DayYears UsedDateSmoking Tobacco: NeverSmokeless Tobacco: Never Tobacco Cessation:Counseling Given: Not Answered Alcohol UseStandard Drinks/WeekCommentsYes0 (1 standard drink = 0.6 oz pure alcohol)Alcohol: 1-2 drinks/monthly or less . Caffeine: 1-2 cups/day CommentsNoSex and Gender InformationValueDate RecordedSex Assigned at BirthNot on fileLegal KsdLokosk30/15/2023 7:24 PM EDTGender IdentityNot on fileSexual OrientationNot on file Last Filed Vital Signs Vital SignReadingTime TakenCommentsBlood Jdfjosrz818/76012/08/2024 2:00 PM EDT Pulse--Temperature--Respiratory Rate--Oxygen Saturation--Inhaled Oxygen Concentration--Nulstv51 kg (183 lb)12/08/2024 2:00 PM CRYKxaiqs955.3 cm (5' 3.5 )09/16/2022 12:00 PM ESTBody Mass Index31.9109/16/2022 12:00 PM EST Plan of Treatment DateTypeDepartmentCare Team (Latest Contact Info)Acsbmfirwag05/22/2026 1:45 PM EDTOffice Visit NOMJennifer Kristen PILY [address] [place] [phone] Calvin Garay MD [address] [place] [address] Health MaintenanceDue DateLast DoneCommentsCT Tiknjwfqhfed23/24/1973Colonoscopy 1972Colorectal Cancer Yyxrzomtz75/24/1973FIT-DNA1972FIT1972 FOBT1972 6087Fsnnpsdcrjbpm90/24/1973Pap SmearOVID-19 Vaccine ( season), 12/09/2020Influenza Vaccine (#1)04/25/20251264Phnhpvfef86/16/375203/, 01/22/2022, 01/15/2021, Additional history existsCervical Cancer Dldcdwova43/16/2030HPV/Rwfqre78/ Pneumococcal Vaccine: Pediatrics (0 to 5 Years) and At-Risk Patients (6 to 64 Years)Aged OutNo longer eligible based on patient's age to complete this topic Procedures Procedure NamePriorityDate/TimeAssociated DiagnosisCommentsMAMMOGRAM*Routine 12/08/2024 2:23 PM EDTIGP, APT HPV,RFX 16/18,80Biapebo10/16/2025 12:00 AM EDT Cervical cancer screening Screening for HPV (human papillomavirus) THINPREP TIS PAP AND HPV MRNA E6/E7 REFLEX HPV 16,18/45 (43715)Tcoudup1201/15/2021 from Last 3 Months or Most Recently Relevant to Health Maintenance Results * MAMMOGRAM* (12/08/2024 2:23 PM EDT)Anatomical RegionLateralityModality Radiographic Imaging Narrative Authorizing ProviderResult TypeResult StatusCalvin Garay MDIMG XR PROCEDURES Final Result * IGP, APT HPV,RFX 16/18,45 (12/08/2024 12:00 AM EDT)ComponentValueRef RangeTest MethodAnalysis TimePerformed AtPathologist SignatureDiagnosis:CommentLABCORP Comment: NEGATIVE FOR INTRAEPITHELIAL LESION OR MALIGNANCY. CELLULAR CHANGES ASSOCIATED WITH ATROPHY ARE PRESENT. Specimen Adequacy:CommentLABCORPComment: Satisfactory for evaluation. ??Endocervical and/or squamous metaplastic cells (endocervical component) are present. Clinician Provided ICD10:CommentLABCORPComment: Z12.4 Z11.51 Performed By:CommentLABCORPComment:Ronda Holden, Rn Wellness (ASCP)Cyto Comments.LABCORPNote:CommentLABCORPComment: The Pap smear is a screening test designed to aid in the detection of premalignant and malignant conditions of the uterine cervix. ??It is not a diagnostic procedure and should not be used as the sole means of detecting cervical cancer. ??Both false-positive and false-negative reports do occur. Test Methodology:CommentLABCORPComment: This liquid based ThinPrep(R) pap test was screened with the use of an image guided system. HPV AptimaNegativeNegativeLABCORPComment: This nucleic acid amplification test detects fourteen high-risk HPV types (16,18,31,33,35,39,45,51,52,56,58,59,66,68) without differentiation. Specimen (Source)Anatomical Location / LateralityCollection Method / Volume Collection TimeReceived TimeVaginal Fluid/ Narrative [facility] - 12/11/2024 5:06 PM EDT Performed at: 01 - [address] ??[id number] Structural Steel Trades Worker: Jelly Black MD, Phone: ??[phone] Performed at: ??02 - [address] ??[id number] [employer] Trades Worker: Jelly Black MD, Phone: ??[phone] Specimen Comment: No. of containers..01 ThinPrep Vial Authorizing ProviderResult TypeResult StatusCalvin Garay MDLAB BLOOD ORDERABLESFinal ResultPerforming OrganizationAddressCity/State/ZIP CodePhone Number [facility] * THINPREP TIS PAP AND HPV MRNA E6/E7 REFLEX HPV 16,18/45 ([id number]) (01/15/2021) ComponentValueRef RangeTest MethodAnalysis TimePerformed AtPathologist SignatureCLINICAL INFORMATION:None givenNOMS LEGACY EXTERNAL LABLMP:AMENORRHEA WITH IUDNOMS LEGACY EXTERNAL LABPREV. PAP:NONE GIVENNOTN LEGACY EXTERNAL LAB PREV. BX:NONE GIVENNOMS LEGACY EXTERNAL LABSOURCE:CervixNOMS LEGACY EXTERNAL LABSTATEMENT OF ADEQUACY:SATISFACTORY FOR EVALUATIONNOTN LEGACY EXTERNAL LAB INTERPRETATION/RESULT:SEE COMMENTNOTN LEGACY EXTERNAL LABComment: Negative for intraepithelial lesion or malignancy. Atrophic pattern; predominantly parabasal cells COMMENT:SEE COMMENTNOPEACEHEALTH PEACE [facility] EXTERNAL LABComment: This Pap test has been evaluated with computer assisted technology. Parabasal cells in smears that lack maturation due to atrophy or other hormonal reasons cannot be differentiated from transformation zone cells. Accordingly, presence or absence of endocervical or transformation zone components cannot be reported in this patient. RAILWAY TRACK WORKER:SEE COMMENTPARK CITY HOSPITAL LEGJEFFERSON [facility] EXTERNAL LABComment: YOLI SPANN(ASCP) CT screening location: [place] [address]. COMMENTSEE COMMENTNOPEACEHEALTH [facility] EXTERNAL LABComment: EXPLANATORY NOTE: The Pap is a screening test for cervical cancer. It is not a diagnostic test and is subject to false negative and false positive results. It is most reliable when a satisfactory sample, regularly obtained, is submitted with relevant clinical findings and history, and when the Pap result is evaluated along with historic and current clinical information. HPV MRNA E6/E7Not DetectedNot DetectedNOTN LEGACY EXTERNAL LABComment: Methodology: Insurance Premium Auditor-Mediated Amplification This assay detects E6/E7 viral messenger RNA (mRNA) from 14 high-risk HPV types (16,18,31,33,35,39,45,51,52,56,58,59,66,68). The analytical performance characteristics of this assay have been determined by [employer]. The modifications have not been cleared or approved by the FDA. This assay has been validated pursuant to the CLIA regulations and is used for clinical purposes. For additional information, please refer to http://education.[employer]/faq/CQC386x4 (This link if provided for information/ educational purposes only.) Specimen (Source)Anatomical Location / LateralityCollection Method / Volume Collection TimeReceived Time01/15/2021 Narrative Authorizing ProviderResult TypeResult StatusCalvin PALOMO LABSFinal ResultPerforming OrganizationAddressCity/State/ZIP CodePhone Number [facility] from Last 3 Months or Most Recently Relevant to Health Maintenance Insurance
--- OUTSIDE RECORDS SUMMARY | 2025-07-07 07:45 | XMS_ITS | CCD ---
Author Organization [facility] Care Team Providers Care Mold Repairer Name Role Phone LISETH OCONNOR Consulting Unavailable LISETH OCONNOR Admitting Unavailable LISETH OCONNOR Attending Unavailable LISETH OCONNOR Consulting Unavailable LISETH OCONNOR Primary Care Unavailable LISETH OCONNOR Admitting Unavailable LISETH OCONNOR Attending Unavailable LISETH OCONNOR Consulting Unavailable LISETH OCONNOR Admitting Unavailable LISETH OCONNOR Attending Unavailable Liseth Oconnor Unavailable Unavailable Primary Care Provider UnavailARIANNA Rodriguez Attending Unavailable Liseth Oconnor MD Primary Care Provider [phone] Keiko Barba MD Attending Provider [phone] Liseth Oconnor MD Attending Provider Ly Angeline ROCHE Attending Provider [phone] Ly Angeline ROCHE Other Provider [phone] Angeline Raymond Attending Unavailable Angeline Raymond Admitting Unavailable Liseth Oconnor Primary Care Unavailable Allergies Allergy ClassificationReported Allergen(s)Allergy TypeDate of OnsetReaction(s) Facility (1 source)Sulfonamides (Antibiotic)Drug allergy (disorder)94-68-4896Cwb [facility] (11 sources)SulfacetamideDrug Mbgksji10-03-0482ljesaQskrnrjtuClermont County Hospital (11 sources)wiggins flavorPropensity to adverse uldylrqiw87-42-4119aumahsnfgjt [facility] (7 sources)zolpidemDrug Hqupbbu06-82-0834[place], Hives, Feeling hung over [facility]itan HospitalComment on above:Onset Date: 05/15/2017 (1 source)Allergies ReconciledPropensity to adverse reactionsUnknownNorth [employer] Other (5 sources)Substance with sulfonamide structure and antibacterial mechanism of action (substance)Drug pxpoexj07-35-8327Uggbe, [facility] [employer] Other (1 source)patient allergy list reviewed by nurse or physiciaPropensity to adverse jxyvtidym10-74-3495Qbstfvg:[facility] [employer] Other (3 sources)Fruit & Vegetable Daily *DIETARY PRODUCTS/DIETARYPropensity to adverse ltbqvisdg63-58-9470Lcymtfa:pt is allergic to [employer] [employer] Other (4 sources)Sulfonamides (Antibiotic)Allergy to hogezanub13-04-7085JeavnGotpivzegKettering Health DaytonComment on above:Onset Date: 10/13/2013 (4 sources)Fruit & Vegetable Daily *DIETAAllergy to bpuzvucix47-40-5428 Comment:pt is allergic to [facility] HospitalComment on above:Free Text Allergy: Fruit & Vegetable Daily *DIETARY PRODUCTS/DIETARY; Onset Date: 10/13/2013 (2 sources)TrimethoprimDrug Fzjngux20-05-3710KffyhuoMYNL Healthcare Medications Current Medications MedicationDrug Class(es)DatesSig (Normalized)Sig (Original)0.5 ML tirzepatide 10 MG/ML Auto-Injector [Mounjaro] (7 sources)Mounjaro 5 MG/0.5ML as directed Subcutaneous weekly for 28 days ActiveMounjaro 5 MG/0.5ML as directed Subcutaneous [id number] 200 actuat albuterol 0.09 mg/actuat metered dose inhaler (1 source)beta2-Adrenergic AgonistStart: 33-85-6415gibf 1 puff(s) by inhalation every four to six hours as needed for wheezingAlbuterol Sulfate 90 mcg/actuation HFA aerosol inhaler Active 2 PUFF INHALATION EVERY 4-6 HOURS as needed for shortness of breath or wheezing 6.7 January 20, 2025 12:00am Complies with drug therapyAlbuterol Sulfate 90 mcg/actuation HFA aerosol inhaler (1 source)Start: 88-03-1794okvm 1 puff(s) by inhalation every four to six hours as needed for wheezingAlbuterol Sulfate 90 mcg/actuation HFA aerosol inhaler Active 2 PUFF INHALATION EVERY 4-6 HOURS as needed for shortness of breath or wheezing 6.7 January 20, 2025 12:00amB-Complex With Vitamin C capsule (1 source)Start: 31-74-2841ytkg 2 capsules by mouth once dailyB-Complex With Vitamin C capsule Active 2 CAP PO Daily February 10, 2025 12:00am Complies with drug therapyLevonorgestrel (2 sources)Progestin, Progestin-containing Intrauterine DeviceLevonorgestrel (LILETTA, 52 MG, IU) by Intrauterine route ActiveMultivitamin (Daily Multi- Vitamin) tablet (1 source)Start: 01-22-2845ssoy 1 tablet by mouth once dailyMultivitamin (Daily Multi-Vitamin) tablet Active 1 TAB PO Daily February 10, 2025 12:00am Complies wit h drug therapyprimal brown (1 source)Start: 41-23-0294icol 1 capsule by mouth once dailyprimal brown Active 1 CAP PO Daily February 10, 2025 12:00am Dietary suppliment Complies with drug therapy Completed/Discontinued Medications MedicationDrug Class(es)DatesSig (Normalized)Sig (Original)Tirzepatide (16 sources)Start: 09-10-2024 End: 74-89-7394Cxhkrlitulb (Mounjaro) 5 mg/0.5 mL pen injector Discontinued 5 MG SUBCUT every week 2 August 1:18pm January 20, 2025 8:45amStart: 16-49-6859Dvonkxrqkwc (Mounjaro) 5 mg/0.5 mL pen injector Active 5 MG SUBCUT every week 2 September 10, 2024 12:18pmStart: 04-22-2024 End: 30-98-6232Drpftrdzzjv (Mounjaro) 5 mg/0.5 mL pen injector Discontinued 5 MG SUBCUT every week April 22, 2024 12:30pm September 10, 2024 1:18pmStart: 04-22-2024 End: 24-00-5446Yupltflewnd (Mounjaro) 5 mg/0.5 mL pen injector Discontinued 5 MG SUBCUT every week 2 April 22, 2024 11:30am September 10, 2024 12:18pmStart: 12-02-2023 End: 91-05-2511Mrrjaqcoyrv (Mounjaro) 5 mg/0.5 mL pen injector Discontinued 5 MG SUBCUT every week 2 December 02, 2023 10:01am April 22, 2024 12:30pmStart: 12-02-2023 End: 59-60-5253Fpqluadrzpa (Mounjaro) 5 mg/0.5 mL pen injector Discontinued 5 MG SUBCUT every week 2 December 02, 2023 9:01am April 22, 2024 11:30amStart: 12-02-2023 End: 36-57-8424Rknmyuqkpxg (Mounjaro) 5 mg/0.5 mL pen injector Discontinued 5 MG SUBCUT every week December 012:00am December 02, 2023 10:02amStart: 12-02-2023 End: 68-59-8387Sjhmkowuslo (Mounjaro) 5 mg/0.5 mL pen injector Discontinued 5 MG SUBCUT every week November 301:00pm December 02, 2023 9:02amTirzepatide (2 sources)Start: 01-20-2025 End: 43-49-1283Jpsucmozxwr (Mounjaro) 2.5 mg/0.5 mL pen injector Discontinued 2.5 MG SUBCUT every week 2 December 12:00am February 10, 2025 8:43am for 4 weeksStart: 32-99-2904Qdjjenlggql (Mounjaro) 2.5 mg/0.5 mL pen injector Active 2.5 MG SUBCUT every week 2 January 20, 2025 12:00am for 4 weeks Problems Active Problems Problem ClassificationProblemDateDocumented DateEpisodic/ChronicAnxiety disorders (10 sources)Generalized anxiety disorder; Translations: [Generalized anxiety disorder]Onset: 67-79-6487WdulktkSggxpu (2 sources)Exercise induced bronchospasm; Translations: [Exercise induced bronchospasm]50-01-5122SdjziywNqpugrslorcoj and procreative management (2 sources)Intrauterine contraceptive device in situ; Translations: [Encounter for routine checking of intrauterine contraceptive device]61-89-6012Weahbrlx Deficiency and other anemia (2 sources)Anemia; Translations: [Anemia, unspecified]10-59-7676Dmksapid Deficiency and other anemia (3 sources)Iron deficiency anemia; Translations: [Iron deficiency anemia, unspecified]61-08-4931XvrjawfvZiytbipvtg and other anemia (1 source)Iron deficiency anemia, unspecified; Translations: [Iron deficiency anemia, unspecified]27-85-8430PzbgvmcdMeugsbpe mellitus without complication (2 sources)Increased glucose level; Translations: [Other abnormal glucose] 27-89-5870AyfvrttxYiuhicoh of white blood cells (2 sources)Leukopenia; Translations: [Decreased white blood cell count, unspecified]38-50-3326RoqiozsXbmadvetnoujp and screening for infectious disease (6 sources)Contact with and (suspected) exposure to other viral communicable diseases; Translations: [Patient encounter status]Onset: 741629-15-8633 EpisodicMycoses (1 source)Other forms of aspergillosisEpisodicOther circulatory disease (1 source)Elevated blood-pressure reading without diagnosis of hypertension; Translations: [Elevated blood-pressure reading, without diagnosis of hypertension]EpisodicOther inflammatory condition of skin (7 sources)Seborrheic dermatitis of scalp; Translations: [Seborrhea capitis] EpisodicOther inflammatory condition of skin (1 source)Seborrhea capitis; Translations: [Dandruff in adult]EpisodicOther nutritional; endocrine; and metabolic disorders (13 sources)Obesity; Translations: [Other obesity due to excess calories] 66-03-8598NznsomgZcgay nutritional; endocrine; and metabolic disorders (12 sources)Body mass index 30+ - obesity; Translations: [Body mass index (BMI) 32.0-32.9, adult]ChronicOther nutritional; endocrine; and metabolic disorders (2 sources)Other obesity due to excess caloriesChronicOther nutritional; endocrine; and metabolic disorders (1 source)Body mass index (BMI) 32.0-32.9, adultChronicOther nutritional; endocrine; and metabolic disorders (1 source)Body mass index (BMI) 31.0-31.9, adultChronicOther nutritional; endocrine; and metabolic disorders (1 source)Obese class II; Translations: [Body mass index (BMI) 36.0-36.9, adult] ChronicOther nutritional; endocrine; and metabolic disorders (1 source)Obese class I; Translations: [Body mass index 34.0-34.9, adult]Onset: 20-13-5192GrxznrdVrsrt nutritional; endocrine; and metabolic disorders (2 sources)Weight increased; Translations: [Abnormal weight gain]09-21-2024 EpisodicOther screening for suspected conditions (not mental disorders or infectious disease) (10 sources)Cancer cervix screening status; Translations: [Encounter for screening for malignant neoplasm of cervix]75-04-3472FbvjuqydHpruts media and related conditions (1 source)Otitis media; Translations: [Otitis media, unspecified, right ear] EpisodicUnclassified (1 source)COVID-19; Translations: [COVID-19]Onset: 09-03-0360Uofthoonbgqw (1 source)Z12.11 - Encounter for screening for malignant neoplasm of colon,D50.9 - Iron deficiency anemia, unspecifiedViral infection (1 source)Disease caused by 2019-nCoV; Translations: [COVID-19] Past or Other Problems Problem ClassificationProblemDateDocumented DateEpisodic/ChronicAcute bronchitis (1 source)Acute bronchitis; Translations: [Acute bronchitis, unspecified]Onset: 38-76-4717ApttbudhArzmh skin disorders (1 source)Disorder of skin and/or subcutaneous tissue; Translations: [Unspecified disorder of skin and subcutaneous tissue]Onset: 40-56-4817Oiqnexxd Other upper respiratory infections (1 source)Acute sinusitis; Translations: [Acute sinusitis, unspecified]Onset: 88-60-9674Onbmkuvv Results Test NameValueInterpretationReference RangeFacilityHCG,Urineon 76-63-5501Bcea HCG ( test) Ql (U)NegativeNormHCA Florida Highlands Hospital Physician GroupComment on above:Result Comment: PERFORMED BY: [facility] [address] [place] [address] PATHOLOGIST AUTOMOTIVE TECHNICIAN LEYDA PECK M.D.Performed By: #### UHCG #### [address] [place] [address] USAPathology Request for Lab Corpon 33-06-8090Pjfvnedte Request for Lab CorpNormHCA Florida Highlands Hospital Physician GroupComment on above:Order Comment: GI SPECIMENResult Comment: See report. Scanned copy available in EMR. PERFORMED BY: [facility] [address] [place] [address] PATHOLOGIST AUTOMOTIVE TECHNICIAN LEYDA PECK M.D.Performed By: #### PATH TO [facility] #### [facility] [address] [id number] USAAlbumin [Mass/volume] in Serum or Plasmaon 12-07-2024 Albumin [Mass/Vol]Albumin [Mass/volume] in Serum or Plasma2.9-4.4FOhio Valley HospitalAlbumin [Mass/Vol]4.2 g/dL2.9-4.4FOhio Valley HospitalBasophils Auto (Bld) [#/Vol]on 27-32-7079Pnncbygtu (Bld) [#/Vol] Automated basophil count0.0-0.1FOhio Valley HospitalBasophils (Bld) [#/Vol]0.0 10 3/uL0.0-0.1FOhio Valley HospitalBasophils/100 WBC Auto (Bld)on 20-79-2210Jcqlqokfm/100 WBC (Bld)Automated basophil %0.2-2.0[facility] HospitalBasophils/100 WBC (Bld)0.7 %0.2-2.0[facility] HospitalEosinophils/100 WBC Auto (Bld)on 87-48-5857Axcfcgnpxqv/100 WBC (Bld)Automated eosinophil %Low0.9-7.0[facility] Eosinophils/100 WBC (Bld)0.3 %Low0.9-7.0[facility] Erythrocyte distribution width Auto (RBC) [Ratio]on 76-30-1303Nwovcxeacge distribution width (RBC) [Ratio]Erythrocyte distribution width [Ratio] by Automated fbacpDgif69.0-15.0[facility] HospitalErythrocyte distribution width (RBC) [Ratio]18.3 %High11.0-15.0[facility] HospitalHematocrit Auto (Bld) [Volume fraction]on 88-67-6789Jwskgotquk (Bld) [Volume fraction]Hematocrit [Volume Fraction] of Blood by Automated count 36.0-48.0[facility] HospitalHematocrit (Bld) [Volume fraction]38.1 %36.0-48.0[facility] HospitalHemoglobin [Mass/volume] in Bloodon 55-92-1104Hroicopfln (Bld) [Mass/Vol]Hemoglobin [Mass/volume] in BloodLow 12.0-16.0[facility] HospitalHemoglobin (Bld) [Mass/Vol]11.9 g/dL Low12.0-16.0[facility] HospitalIgA [Mass/volume] in Serum or Plasmaon 16-26-8870EtR [Mass/Vol]IgA [Mass/volume] in Serum or Lqesik79-[address] [place], [place] [address]IgA [Mass/Vol]235 mg/fH33-985Ofuvbzach[address] [place], [place] [address]IgE [Units/volume] in Serum or Plasmaon 56-85-2172FzW QnIgE [Units/volume] in Serum or Plasma6-495[facility] HospitalComment on above:Performed at: [employer] - [facility] [address] [id number] Director: Leticia Fry MD, Phone: [phone] Qn23 [IU]/mL 6-495[facility] HospitalComment on above:Performed at: BN - [facility] [address] [id number] Director: Leticia Fry MD, Phone: [phone] [Mass/volume] in Serum or Plasmaon 12-07-2024 IgG [Mass/Vol]IgG [Mass/volume] in Serum or Alnoau115-0715RkbazftjbTrihealth Good Samaritan HospitalIgG [Mass/Vol]1174 mg/cQ910-5485HtfauxjvtTrihealth Good Samaritan Hospital IgM [Mass/volume] in Serum or Plasmaon 57-57-4733WiW [Mass/Vol]IgM [Mass/volume] in Serum or ElnpxiNmctfshu18-560EkaceontyTrihealth Good Samaritan HospitalIgM [Mass/Vol] 224 mg/fHRsbmtviw21-051UgvnkvdzdTrihealth Good Samaritan HospitalImmunoglobulin light chains.kappa.free [Mass/volume] in Serumon 65-79-2342Pntnbdxueohxyd light chains.kappa.free (S) [Mass/Vol]Immunoglobulin light chains.kappa.free [Mass/volume] in Serum3.3-19.4FOhio Valley HospitalImmunoglobulin light chains.kappa.free (S) [Mass/Vol]18.4 mg/L3.3-19.4FOhio Valley HospitalImmunoglobulin light chains.kappa.free/Immunoglobulin light chains.lambda.free [Briseyda 07-17-7609Gxaqfhlqkmetgf light chains.kappa.free/Immunoglobulin light chains.lambda.free (S) [Mass ratio] Immunoglobulin light chains.kappa.free/Immunoglobulin light chains.lambda.free [Mass0.26-1.65[facility]itan HospitalComment on above:Performed at: General Assembly[address] [id number] Director: Mohan Obrien PhD, Phone: [phone] light chains.kappa.free/Immunoglobulin light chains.lambda.free (S) [Mass ratio]1.51 0.26-1.65[facility] HospitalComment on above:Performed at: [employer] [address] [id number] Director: Mohan Obrien PhD, Phone: [phone] light chains.lambda.free [Mass/volume] in Serum or Plasmaon 47-79-3807Pbtmemgspungyz light chains.lambda.free [Mass/Vol]Immunoglobulin light chains.lambda.free [Mass/volume] in Serum or Plasma5.7-26.3FOhio Valley Hospital Immunoglobulin light chains.lambda.free [Mass/Vol]12.2 mg/L5.7-26.3FOhio Valley HospitalIron binding capacity [Mass/volume] in Serum or Plasmaon 38-64-5929Uctf binding capacity [Mass/Vol]Iron binding capacity [Mass/volume] in Serum or Lchqir781.0-450.0[facility] HospitalIron binding capacity [Mass/Vol]428.0 ug/dL250.0-450.0[facility] HospitalIron saturation [Mass Fraction] in Serum or Plasmaon 98-28-5299Lugf saturation [Mass fraction]Iron saturation [Mass Fraction] in Serum or PlasmaTrihealth Good Samaritan HospitalIron saturation [Mass fraction]7.5 %[facility] HospitalLaboratory - Chemistry and Chemistry - challengeon 55-54-7415Sipbeidsw (Vitamin B12) [Mass/Vol]695 pg/zU884-1286QpioxskuwTrihealth Good Samaritan Hospital Comment on above:Performed at: - [facility] [id number] Director: Mohan Obrien PhD, Phone: [phone] [Mass/Vol]11.0 ng/mL8.0-252.0[facility] HospitalIron [Mass/Vol] 32.0 ug/dLLow50.0-170.0[facility] HospitalLDH [Catalytic activity/Vol]204 U/T54-565OfefcdyakTrihealth Good Samaritan HospitalLaboratory - Hematology and Cell countson 08-62-5970LTU (Bld) [Velocity]38 mm/hHigh<=30 [facility] HospitalImmature granulocytes/100 WBC (Bld)0.2 %0.0-0.5 [facility] HospitalLeukocytes [#/volume] corrected for nucleated erythrocytes in Blood by Automated counon 96-14-6257GEK corrected for nucl RBC Auto (Bld) [#/Vol]Leukocytes [#/volume] corrected for nucleated erythrocytes in Blood by Automated coun4.0-11.0[facility] HospitalWBC corrected for nucl RBC Auto (Bld) [#/Vol]6.0 10 3/uL4.0-11.0[facility] HospitalLymphocytes Auto (Bld) [#/Vol]on 74-69-0297Lplipptniod (Bld) [#/Vol] Lymphocytes [#/volume] in Blood by Automated count1.2-3.8[facility]itan HospitalLymphocytes (Bld) [#/Vol]1.6 10 3/uL1.2-3.8[facility] HospitalLymphocytes/100 WBC Auto (Bld)on 42-59-0672Fyeksrnaonw/100 WBC (Bld)Lymphocytes/100 leukocytes in Blood by Automated count20.5-60.0[facility] HospitalLymphocytes/100 WBC (Bld)26.1 %20.5-60.0[facility] HospitalH Auto (RBC) [Entitic mass]on 22-31-5951DFN (RBC) [Entitic mass]MCH [Entitic mass] by Automated fhxvxUdc31.7-34.0[facility] (RBC) [Entitic mass]25.5 pgLow26.7-34.0St. [facility] HospitalHC Auto (RBC) [Mass/Vol]on 28-75-0244SOOA (RBC) [Mass/Vol]MCHC [Mass/volume] by Automated count29.9-35.2FKettering Health MiamisburgHC (RBC) [Mass/Vol]31.2 g/dL29.9-35.2FKettering Health MiamisburgV Auto (RBC) [Entitic vol]on 40-41-0784OMV (RBC) [Entitic vol]MCV [Entitic volume] by Automated count81.0-99.0St. Rita's HospitalV (RBC) [Entitic vol]81.8 fL81.0-99.0[facility] HospitalMonocytes Auto (Bld) [#/Vol]on 36-32-9419Bttqbdawb (Bld) [#/Vol]Automated blood monocyte count0.3-0.8[facility] HospitalMonocytes (Bld) [#/Vol]0.5 10 3/uL 0.3-0.8[facility] HospitalMonocytes/100 WBC Auto (Bld)on 45-05-8259Bhkxylath/100 WBC (Bld)Automated monocyte %1.7-12.0[facility] HospitalMonocytes/100 WBC (Bld)7.5 %1.7-12.0[facility] HospitalNeutrophils Auto (Bld) [#/Vol]on 36-51-8205Djgmnojgzcs (Bld) [#/Vol] Neutrophils [#/volume] in Blood by Automated count1.4-6.5FOhio Valley HospitalNeutrophils (Bld) [#/Vol]3.9 10 3/uL1.4-6.5FOhio Valley HospitalNeutrophils/100 WBC Auto (Bld)on 76-48-8469Iekhrjvnyaj/100 WBC (Bld)Automated neutrophil %43.0-75.0[facility] Neutrophils/100 WBC (Bld)65.2 %43.0-75.0[facility] HospitalNo Panel Informationon 66-17-0727U-Reactive Protein, Quantitative<0.50 mg/dL<=0.50 [facility] HospitalEosinophils # (Auto)0.0 10 3/uL0.0-0.7FOhio Valley HospitalFolate22.50 ng/mL8.60-58.90[facility] HospitalImmature Granulocyte # (Auto)0.01 10 3/uL0.00-0.03[facility] HospitalProtein Electrophoresis M-SpikeNot Observed g/dLNot Observed [facility] HospitalProtein Electrophoresis NoteComment.[facility] HospitalComment on above:Protein electrophoresis scan will follow via computer,mail, or community development manager delivery.Platelet mean volume Auto (Bld) [Entitic vol]on 03-15-5889Fxiwionz mean volume (Bld) [Entitic vol]Platelet mean volume [Entitic volume] in Blood by Automated countLow9.5-13.5FOhio Valley HospitalPlatelet mean volume (Bld) [Entitic vol]9.4 fLLow9.5-13.5FOhio Valley HospitalPlatelets Auto (Bld) [#/Vol]on 20-63-4652Rmuliqjxl (Bld) [#/Vol]Platelets [#/volume] in Blood by Automated -412EfjvmpufgTrihealth Good Samaritan HospitalPlatelets (Bld) [#/Vol]370 10 3/oL507-895NapaguzmzTrihealth Good Samaritan HospitalProtein [Mass/volume] in Serum or Plasmaon 09-09-0549Yzgjwyr [Mass/Vol]Protein [Mass/volume] in Serum or Plasma6.0-8.5FOhio Valley HospitalProtein [Mass/Vol]7.7 g/dL6.0-8.5FOhio Valley Hospital RBC Auto (Bld) [#/Vol]on 05-65-8121KAE (Bld) [#/Vol]Erythrocytes [#/volume] in Blood by Automated count4.20-5.40[facility] HospitalRBC (Bld) [#/Vol]4.66 10 6/uL4.20-5.40[facility] HospitalReticulocytes/100 RBC Auto (Bld)on 17-68-5578Wfvcwbgpdwzad/100 RBC (Bld)Reticulocyte % auto 0.60-3.10[facility] HospitalReticulocytes/100 RBC (Bld)0.80 % 0.60-3.10[facility] Hospitalerum globulin measurement (mass/volume)on 38-11-4150Xhqupiro (S) [Mass/Vol]Serum globulin measurement (mass/volume)2.2-3.9[facility] HospitalGlobulin (S) [Mass/Vol]3.5 g/dL2.2-3.9[facility] Hospitalerum or plasma albumin/globulin mass ratioon 07-50-6484Ioxrkex/Globulin [Mass ratio]Serum or plasma albumin/globulin mass ratio0.7-1.7FOhio Valley Hospital Albumin/Globulin [Mass ratio]1.3 {ratio}0.7-1.7FOhio Valley Hospital Serum or plasma alpha 1 globulin measurement by electrophoresis (mass/volume)on 15-65-8642Yxgrt 1 globulin Elph [Mass/Vol]Serum or plasma alpha 1 globulin measurement by electrophoresis (mass/volume)0.0-0.4FOhio Valley HospitalAlpha 1 globulin Elph [Mass/Vol]0.3 g/dL0.0-0.4FMercy Health Willard Hospitalerum or plasma alpha 2 globulin measurement by electrophoresis (mass/volume)on 49-40-7874Jlkvb 2 globulin Elph [Mass/Vol]Serum or plasma alpha 2 globulin measurement by electrophoresis (mass/volume)0.4-1.0[facility] HospitalAlpha 2 globulin Elph [Mass/Vol]0.8 g/dL0.4-1.0[facility] Hospitalerum or plasma beta globulin measurement by electrophoresis (mass/volume)on 26-17-9009Wcbc globulin Elph [Mass/Vol]Serum or plasma beta globulin measurement by electrophoresis (mass/volume)0.7-1.3FOhio Valley HospitalBeta globulin Elph [Mass/Vol]1.2 g/dL0.7-1.3FMercy Health Willard Hospitalerum or plasma free cefuroxime measurement (mass/volume)on 77-34-6513Scjohopamm free [Mass/Vol]Serum or plasma free cefuroxime measurement (mass/volume)NegativeTrihealth Good Samaritan HospitalComment on above:Performed at: [employer] [address] [id number] Director: Mohan Obrien PhD, Phone: [phone] free [Mass/Vol]Negative NegativeTrihealth Good Samaritan HospitalComment on above:Performed at: [employer] [address] [id number] Director: Mohan Obrien PhD, Phone: [phone] or plasma gamma globulin measurement by electrophoresis (mass/volume)on 18-72-8565Wwlkf globulin Elph [Mass/Vol]Serum or plasma gamma globulin measurement by electrophoresis (mass/volume)0.4-1.8 [facility] HospitalGamma globulin Elph [Mass/Vol]1.3 g/dL0.4-1.8 [facility] Hospitalerum or plasma immunoelectrophoresis interpretationon 32-77-4816Jovpusfzoolhma IEP [Interp]Serum or plasma immunoelectrophoresis interpretation.[facility] HospitalComment on above:No monoclonality detected.Interpretation IEP [Interp]Comment.[facility] HospitalComment on above:No monoclonality detected.Basophils Auto (Bld) [#/Vol]on 27-15-1765Pelvzvgvk (Bld) [#/Vol]Automated basophil count 0.0-0.1FOhio Valley HospitalBasophils/100 WBC Auto (Bld)on 45-23-5876Dymjfbpld/100 WBC (Bld)Automated basophil %0.2-2.0[facility] HospitalEosinophils/100 WBC Auto (Bld)on 14-42-3017Zwjucozysod/100 WBC (Bld)Automated eosinophil %0.9-7.0[facility] HospitalErythrocyte distribution width Auto (RBC) [Ratio]on 63-42-2670Lcembiicotu distribution width (RBC) [Ratio]Erythrocyte distribution width [Ratio] by Automated countHigh 11.0-15.0[facility] HospitalHematocrit Auto (Bld) [Volume fraction]on 51-02-4372Hufzbtlnka (Bld) [Volume fraction]Hematocrit [Volume Fraction] of Blood by Automated mggduPsq92.0-48.0[facility] HospitalHemoglobin [Mass/volume] in Bloodon 36-87-1705Xaobzlbxxt (Bld) [Mass/Vol] Hemoglobin [Mass/volume] in PbdsyIlv29.0-16.0[facility] Laboratory - Hematology and Cell countson 72-89-4630Hufihekk granulocytes/100 WBC (Bld)0.0 %0.0-0.5FOhio Valley HospitalLeukocytes [#/volume] corrected for nucleated erythrocytes in Blood by Automated counon 55-90-4362ZEN corrected for nucl RBC Auto (Bld) [#/Vol]Leukocytes [#/volume] corrected for nucleated erythrocytes in Blood by Automated counLow4.0-11.0[facility] HospitalLymphocytes Auto (Bld) [#/Vol]on 32-26-2639Ogansjmsbhf (Bld) [#/Vol]Lymphocytes [#/volume] in Blood by Automated countLow1.2-3.8[facility] HospitalLymphocytes/100 WBC Auto (Bld)on 11-12-2024 Lymphocytes/100 WBC (Bld)Lymphocytes/100 leukocytes in Blood by Automated count 20.5-60.0[facility] HospitalMCH Auto (RBC) [Entitic mass]on 55-61-3893PVF (RBC) [Entitic mass]MCH [Entitic mass] by Automated countLow 26.7-34.0[facility] HospitalMCHC Auto (RBC) [Mass/Vol]on 78-01-1153VHFE (RBC) [Mass/Vol]MCHC [Mass/volume] by Automated count29.9-35.2 [facility] HospitalMCV Auto (RBC) [Entitic vol]on 26-32-9867HLH (RBC) [Entitic vol]MCV [Entitic volume] by Automated count81.0-99.0[facility] HospitalMonocytes Auto (Bld) [#/Vol]on 74-64-4213Memchjhkt (Bld) [#/Vol]Automated blood monocyte count0.3-0.8[facility] Monocytes/100 WBC Auto (Bld)on 76-92-5627Irfekdpue/100 WBC (Bld)Automated monocyte %1.7-12.0[facility] HospitalNeutrophils Auto (Bld) [#/Vol]on 74-73-8435Kalexiwqijx (Bld) [#/Vol]Neutrophils [#/volume] in Blood by Automated count1.4-6.5FOhio Valley HospitalNeutrophils/100 WBC Auto (Bld)on 24-89-3280Pmgdchjldrr/100 WBC (Bld)Automated neutrophil %43.0-75.0 [facility] HospitalNo Panel Informationon 10-16-7540Tbjdmchyvuf # (Auto)0.0 10 3/uL0.0-0.7FOhio Valley HospitalImmature Granulocyte # (Auto)0.00 10 3/uL0.00-0.03[facility] HospitalPlatelet mean volume Auto (Bld) [Entitic vol]on 70-51-8365Yyzsounq mean volume (Bld) [Entitic vol] Platelet mean volume [Entitic volume] in Blood by Automated count9.5-13.5 [facility] HospitalPlatelets Auto (Bld) [#/Vol]on 11-12-2024 Platelets (Bld) [#/Vol]Platelets [#/volume] in Blood by Automated ycjbr125-378 [facility] HospitalRBC Auto (Bld) [#/Vol]on 61-97-3082PJG (Bld) [#/Vol]Erythrocytes [#/volume] in Blood by Automated count4.20-5.40[facility] HospitalCREENING MAMMOGRAM W/COLEEN, BILATERAL*on 01-22-2022 SCREENING MAMMOGRAM W/COLEEN, BILATERAL*CLINICAL HISTORY: Screening Mammogram COMPARISON: Priors from 2020, [...] VERY IMPORTANT TO YOUR HEALTH. THE CURRENT [employer] [employer] AND [employer] COMPREHENSIVE CANC[employer] NETWORK GUIDELINES RECOMMENDS ANNUAL MAMMOGRAPHY BEGINNING AT AGE 40 THIS FACILITY USES A REMINDER SYSTEM TO ENSURE ALL PATIENTS RECEIVE REMINDER NOTIFICATIONS AT THE APPROPRIATE TIME BASED ON THE RECOMMENDATIONS OF THIS EXAM. Board Certified Radiologist. Accredited by the ACR and FDA. Report reported and signed by Charlie Martinez on 01/22/2022 1540NormalNorttucson medical centern Hartford HospitalCovid-19 PCR (CVDTBH)on 83-86-6464Wfznj-19 PCRNOT DETECTEDNormalNOT DETECTEDMercy Health Urbana HospitalComhenry ford [facility] hospital on above:Result Comment: This test is not yet approved or cleared by the [place] FDA. When there are no FDA-approved or cleared tests available, and other criteria are met, FDA can make tests available under an emergency access mechanism called an Emergency Use Authorization (EUA). The EUA for this test is supported by the [employer] of Health and Human Service's (HHS's) declaration [...] which the test may no longer be used).Performed By: #### CVDTB #### [facility] [address] [place] [address] Odelllena TsangOphelia [facility] HospitalComhenry [facility] on above: Result Comment: This test is not yet approved or cleared by the [place] FDA. When there are no FDA-approved or cleared tests available, and other criteria are met, FDA can make tests available under an emergency access mechanism called an Emergency Use Authorization (EUA). The EUA for this test is supported by the [place] of Health and Human Service?s (HHS?s) declaration [...] the context of a patients recent exposures andthe presence of clinical signs and symptoms consistent with SARS-CoV-2.Performed By: #### CVDTBH #### [facility] [address] [place] [address] Odell KarenCovid-19 PCR ([facility])on 76-77-5711Hvgiw PCRDETECTEDAbnormalNOT [facility] HospitalComhenry [facility] on above:Result Comment: This test is not yet approved or cleared by the [place] FDA. When there are no FDA-approved or cleared tests available, and other criteria are met, FDA can make tests available under an emergency access mechanism called an Emergency Use Authorization (EUA). The EUA for this test is supported by the [place] of Health and Human Service's (HHS's) declaration [...] which the test may no longer be used).Performed By: #### CVDTBH #### [facility] [address] [place], [place] [id number] Odell TsangenEUA StatementSEE [facility] HospitalComhenry [facility] on above: Result Comment: This test is not yet approved or cleared by the [place] FDA. When there are no FDA-approved or cleared tests available, and other criteria are met, FDA can make tests available under an emergency access mechanism called an Emergency Use Authorization (EUA). The EUA for this test is supported by the [place] of Health and Human Service?s (HHS?s) declaration [...] the context of a patients recent exposures andthe presence of clinical signs and symptoms consistent with SARS-CoV-2.Performed By: #### CVDTBH #### [facility] [address] [place] [address] Odell TsangenCovid-19 PCR ([facility])on 54-55-6145Edlln- PCRDETECTEDAbnormalNOT [facility] on above:Result Comment: This test is not yet approved or cleared by the [place] FDA. When there are no FDA-approved or cleared tests available, and other criteria are met, FDA can make tests available under an emergency access mechanism called an Emergency Use Authorization (EUA). The EUA for this test is supported by the [place] of Health and Human Service's (HHS's) declaration [...] which the test may no longer be used).Performed By: #### CVDTBH #### [facility] [address] [place] [address] Odell TsangenEUA [facility] on above: Result Comment: This test is not yet approved or cleared by the [place] FDA. When there are no FDA-approved or cleared tests available, and other criteria are met, FDA can make tests available under an emergency access mechanism called an Emergency Use Authorization (EUA). The EUA for this test is supported by the [employer] of Health and Human Service?s (HHS?s) declaration [...] the context of a patients recent exposures andthe presence of clinical signs and symptoms consistent with SARS-CoV-2.Performed By: #### CVDTBH #### [facility] [address] [place] [address] Odell Woods Vital Signs Date TimeVital SignValuePerforming UoypcwwybSsswhukd54-23-4296 10:50-0400 Diastolic blood invfachz76 mm[Hg]Liseth Oconnor MD Work Phone: [phone])[address]07-01-2025 10:50-0400 Heart rate63 /Anibal Oconnor MD Work Phone: [phone])[address]07-01-2025 10:50-0400 Respiratory rate20 /Anibal Oconnor MD Work Phone: [phone]07-01-2025 10:50-0400 SaO2% (BldA) [Mass fraction]100 %Liseth Oconnor MD Work Phone: [phone]97[facility]07-01-2025 10:50-0400 Systolic blood johdionr638 mm[Hg]Liseth Oconnor MD Work Phone: [phone])[address]07-01-2025 08:25-0400 Body itswmb155.48 cmLiseth Oconnor MD Work Phone: [phone]07-01-2025 08:25-0400 Body moqasv60.91 kgLiseth Oconnor MD Work Phone: [phone]05-29-2025 08:44-0400 Body zufoxy775.75 cmTri[facility] Hospital05-29-2025 08:44-0400Body mass index (BMI) [Ratio]33.8 kg/d2KzwjtrknfTrihealth Good Samaritan Hospital05-29-2025 08:44-0400Body hubptx15.27 kgTrihealth Good Samaritan Hospital05-29-2025 08:44-0400Diastolic blood nrzwrfev95 mm[Hg][facility] 01-20-2025 08:44-0400Heart rate71 /[facility] 01-20-2025 08:44-0400Systolic blood qdezytax674 mm[Hg][facility]04-16-2025 14:00-0400Body mass index (BMI) [Ratio]31.91 kg/v3JmgknArianna Garay MD Work Phone: [facility] SpringfieldQwbutwgtot69-78-2150 14:00-0400Body rokwkp18.01 kgArianna Garay MD Work Phone: [phone]-[facility] SpringfieldZixruxpdaf76-10-9864 14:00-0400Diastolic blood gkjieglq56 mm[Hg]Arianna Garay MD Work Phone: [phone]-[facility] SpringfieldIxtewdzmnp86-33-1371 14:00-0400Systolic blood wqytbtdu231 mm[Hg]Arianna Garay MD Work Phone: [facility] SpringfieldUwtuywflau82-47-2536 12:03-0500Body aqytsb889.75 cmTri[facility] Hospital01-17-2025 12:03-0500Body mass index (BMI) [Ratio]32.5 kg/x5NbmrqqzxqTrihealth Good Samaritan Hospital01-17-2025 12:03-0500Body qvwumo62.1 [facility]01-17-2025 12:03-0500Diastolic blood tddimtur89 mm[Hg][facility]01-17-2025 12:03-0500 Heart rate61 /[facility]01-17-2025 12:03-0500Systolic blood lfpimelo940 mm[Hg][facility]10-24-2023 14:45-0400 Body yzoiyw914.38 cmLiseth Oconnor Other [employer] Other 637667-39-6336 14:45-0400Body mass index (BMI) [Ratio] 30.17 kg/k1HfazniLiseth Oconnor Other [employer] Other 10-24-2023 14:45-0400Body fkgouu42.66 kgJeseniarebeccaheather Oconnor Other [employer] Other 10-24-2023 14:45-0400Diastolic blood lpiithna62 mm[Hg] Liseth Oconnor Other [employer] Other 10-24-2023 14:45-0400Systolic blood nugsijsh415 mm[Hg] Liseth Oconnor Other [employer] Other 07-03-2023 08:30-0400Body wkepgz269.38 cmLiseth Oconnor Other [employer] Other 07-03-2023 08:30-0400Body mass index (BMI) [Ratio] 31.53 kg/i3JnbkzgLiseth Oconnor Other [employer] Other 07-03-2023 08:30-0400Body gxeojj19.11 kgLiseth Oconnor Other [employer] Other 07-03-2023 08:30-0400Diastolic blood oskjyfxx28 mm[Hg] Liseth Oconnor Other [employer] Other 07-03-2023 08:30-0400Systolic blood qzbatstc915 mm[Hg] Liseth Oconnor Other [employer] Other 04-04-2023 16:30-0400Body zotcqg597.38 cmLiseth Oconnor Other [employer] Other 04-04-2023 16:30-0400Body mass index (BMI) [Ratio] 32.85 kg/i4GnsvneLiseth Oconnor Other [employer] Other 04-04-2023 16:30-0400Body vqvsob03.46 kgLiseth Faye Other [facility] Other 04-04-2023 16:30-0400Diastolic blood keyshafv74 mm[Hg] Liseth Faye Other [employer] Other 04-04-2023 16:30-9361JzP8% (BldA) [Mass fraction]99 % Liseth Faye Other noI AM AT Other 04-04-2023 16:30-0400Systolic blood bdtcmuxy212 mm[Hg] Liseth Faye Other [facility] Other Encounters Encounter DateEncounter TypeCare ProviderFacilityStart: 02-22-2025 End: 55-24-5845noetaggvqzCamatwrfk L LyFacility:[facility] Hospitaltart: 52-04-0074Hio-patient / Non-visitCatherine L Ly DO-[facility] Work Phone: Start: 01-20-2025 End: 44-63-1547pnddcctfiaNinlbwfffDunlap Memorial Hospital Work Phone: Start: 01-20-2025 End: 33-17-7307Fdjxvxz encounter [facility] Work Phone: Start: 01-20-2025 End: 52-97-0481Yuaigyj encounter Praveena Oconnor MDTriHealth McCullough-Hyde Memorial Hospitaltart: 12-08-2024 End: 57-78-6991Pjgvwm Kim Garay MD Work Phone: noms [facility] OBStart: 12-08-2024 End: 44-32-8729Liusiq Kim Garay MD Work Phone: [facility] OBStart: 12-08-2024 End: 19-30-4334Utdebto encounter procedureArianna Garay MD Work Phone: [facility] Work Phone: start: 12-08-2024 End: 13-80-4323Aajtlckg preventive med est patient 40-64yrsArianna Garay MD Work Phone: noms [facility] OBComment on above:Well woman exam with routine gynecological exam (Primary Dx); Cervical cancer screening; Screening for HPV (human papillomavirus); Other screening mammogram; Intrauterine device surveillanceStart: 12-08-2024 End: 51-43-1170tzyjtohaldONWGJ J PRINTYNot AvailableStart: 38-58-1916Ctn-patient / Non-visitSelect [facility] Work Phone: Start: 22-43-7997Trh-patient / Non-visitSelect [facility] Work Phone: Start: 43-04-2168Rmozkip encounter statusTriHealth McCullough-Hyde Memorial Hospitaltart: 09-10-2024 End: 69-58-1361rnuzkkdwdhAjogtiojuDunlap Memorial Hospital Work Phone: Start: 09-10-2024 End: 73-35-3770Vxlptdj encounter procedureSelect [facility] Work Phone: Start: 06-25-2023 End: 20-41-4200obqofpmvdiJbflgv Braun Other [employer] Other Start: 93-14-7768Vansldgcy encounterLiseth [facility]ertart: 06-17-2023 End: 14-05-4484pivfrbjexuPkxxzf Braun Other [facility] Other Start: 43-13-3576Ozwxet outpatient visit [address] [facility]ertart: 03-20-2023 End: 52-02-8812zihqqfscicZiofjz Oconnor Other [facility] Other Start: 04-31-2984Kupizrdqe encounterMarcia Pawan [facility] ClinicStart: 02-24-2023 End: 77-30-8302kfkmnzpnxdZvetgw Oconnor Other [facility] Other Start: 11-82-1354Fjxuma outpatient visit 15 minutes [facility] ClinicStart: 02-21-2023 End: 14-62-7138lfbshjhzrbYarreo Oconnor Other [facility] Other Start: 97-57-9021Mkgiawvxz encounterMarcia Pawan [facility] ClinicStart: 01-17-2023 End: 99-96-3115vlpobfzxryXccxqg Oconnor Other [facility] Other Start: 81-57-8723Ifrrufrbw encounterMarcia Pawan [facility] ClinicStart: 11-26-2022 End: 64-58-8384rqimkgycwrDnfomt Oconnor Other [facility] Other Start: 53-62-6856Kyvnqj outpatient visit 15 minutes [facility]eth [facility] ClinicStart: 92-36-0101Sabyz health examination Liseth Oconnor Other [employer] Other Start: 08-14-2020 End: 04-66-2876Fznmkzm encounter procedureMARCIA E BRAUNFacility:G0Ftkuo: 08-08-2020 End: 90-92-0358Uluklql encounter procedureMARCIA E BRAUNFacility:I0Upvob: 08-03-2020 End: 77-16-5414Pqrjssw encounter procedureMARCIA E BRAUNFacility:H1 Procedures DateProcedureProcedure DetailPerforming ClinicianStart: 90-89-6919Vmfjiqfvvli Arianna Garay MD Work Phone: start: 59-68-0181KdhlaarovixOlbdv Printy MD Work Phone: start: 57-78-8058Fygrxozlnfx observation [Identifier] in Cervix by Cyto stainArianna Garay MD Work Phone: Plan of Treatment DateCare ActivityDetailAuthorStart: 12-14-2025 End: 54-11-4949Dyvvhxn encounter endknpglv62/22/2026 1:45 PM EDT Office Visit [facility] [address] [place] [address] Arianna Garay MD [address] [place] [address] [facility] OBStart: 42-80-8709Wemiyaung for malignant neoplasm of breastMammogramNODC HealthcareStart: 77-94-8615Kufamxlyg vaccinationInfluenza Vaccine (Season Ended)[facility] HealthcareStart: 80-85-7455IpqdmzikrTriHealth McCullough-Hyde Memorial Hospitaltart: 31-80-0909Olvdydl referralC[facility] Work Phone: Start: 12-08-2024 End: 00-08-4848ISJ Breast - bilateral screeningBilateral screening mammogram with tomosynthesis Imaging Routine Other screening mammogram Expected: 12/08/2024, Expires: 02/06/2026NOMS HealthcareComment on above:Expected: 12/08/2024, Expires: 02/06/2026Start: 12-08-2024 End: 02-57-8618Zvawiey encounter bmbvjefvh97/16/2025 2:00 PM EDT Office Visit [facility] [address] [place] [id number] Arianna Garay MD [address] [place] [address] Well woman exam with routine gynecological exam; Cervical cancer screening; Screening for HPV (human papillomavirus); Other screening mammogramNOMS [facility] OBComment on above:Well woman exam with routine gynecological exam; Cervical cancer screening; Screening for HPV (human papillomavirus); Other screening mammogramStart: 75-92-2566Cjwqfxvaj for malignant neoplasm of cervixNOMS HealthcareStart: 35-11-2654Wgldnfzwk for malignant neoplasm of breast MammogramNOMS HealthcareStart: 98-87-9043Hcvglyocw for malignant neoplasm of cervixHPV/CotestNOMS HealthcareStart: 62-71-6444Rmqyoqmcp for malignant neoplasm of colonNOMS HealthcareIGP, APT HPV,RFX 16/18,45IGP, APT HPV,RFX 16/18,45 Lab Routine Cervical cancer screening Screening for HPV (human papillomavirus) Ordered: 12/08/2024[facility] Work Phone: comment on above:Ordered: 12/08/2024Patient Education Esophagitis [facility] Hemorrhoids Discharge Instructions Know your [facility] Work Phone: Patient [facility] Work Phone: Payers DatePayer CategoryPayerPolicy [id number] Health InsuranceMEDICAL MUTUAL [id number] [facility] [id number] [id number] [id number] [id number]hecXMS26565064787-23-0691Izvfuab [id number] 93ukmg49-bl9d-0632-vf21-v9899134jk30 Social History DateTypeDetailFacilityUnknown if ever smokedPavo [employer] Other Start: 12-07-2024 End: 35-70-5267Iyi Assigned At [facility] [employer] Other Start: 07-29-2018 End: 31-36-5443Ghmzphe smoking status NHISNever smoked tobacco (finding) [facility] Hospitaltart: 09-10-2024 End: 67-86-7581CfxCnvsiw (finding)[facility] Hospitaltart: 50-89-8320Ple Assigned At [facility] Foundationtart: 12-07-2024 End: 02-88-6962Tadprabdx beverage intakeCurrent drinker of alcohol (finding)[facility] HealthcareStart: 12-07-2024 End: 84-88-9883Tiwnbyi of Social functionNOMS HealthcareStart: 83-46-7289Bqexlwy CommentAlcohol: 1-2 drinks/monthly or less . Caffeine: 1-2 cups/dayHUNTSMAN MENTAL [facility]ALTH [facility]STITUTE HealthcareStart: 07-02-9982Eme assigned at birthNot on fileDoctors Hospital of SpringfieldStart: 97-57-8773Latydzq use and exposureSmokeless tobacco non-userNODC Healthcare Clinical Notes 11-26-2022 to 01-20-2025 Note Date & SqssNwxxXcncrnsx62-37-7357 Evaluation note* Diagnosis Onset Date Resolution Status Admit Date Class 1 obesity with body mass index (BM I) of 33.0 to 33.9 in adult acuteMay 2024 8:28amColon cancer screeningacuteMay 2024 8:28am Exercise-induced asthmaacuteMay 2024 8:28amIron (Fe) deficiency anemia acuteMay 2024 8:28amWellness examinationacuteMay 2024 8:28am [facility] Work Phone: [phone] 630-895904-16-2025 History of Present illness Narrative* Arianna Garay MD - 12/08/2024 2:00 PM EDT Images from the original note were not included. Arianna Garay MD Obstetrics and Gynecology Patient: Melissa Garcia, : 1970 (54 y.o.) DOS 12/08/24 Exam Date: 12/08/2024 HPI: Yearly exam. She is well. No bleeding with IUD, but no hotflashes Visit Vitals BP 124/76 Wt 183 lb LMP (LMP Unknown) BMI 31.91 kg/m OB Status Implant Smoking Status Never BSA 1.93 m OB History Para Term AB Living 1 1 1 0 0 1 SAB IAB Ectopic Multiple Live Births 0 0 0 0 1 # Outcome Date GA Lbr Sherif/2nd Weight Sex Type Anes PTL Lv 1 Term Obstetric Comments Pap: 01/12-Neg EMANUEL: HPV Neg Mammo: 09/18-[facility] sending report Liletta IUD-03/12; amenorrhea Medication and Allergies Medication Documentation Review Audit Reviewed by Brianna Castellon MA (Photographic Equipment Inspector) on 12/08/24 at 1403 Medication Order Taking? Sig Documenting Provider Last Dose Status Levonorgestrel (LILETTA, 52 MG, IU) [id number] Yes by Intrauterine route Arianna Garay MD Active Allergies Allergen Reactions Sulfa Antibiotics Hives and Swelling Trimethoprim Unknown Past Medical History: Diagnosis Date Anxiety COVID positive 07/14 H/O recurrent urinary tract infection Spider veins Varicella zoster Past Surgical History: Procedure Laterality Date VAGINAL DELIVERY 2008 WISDOM TOOTH EXTRACTION Physical Exam: Objective Physical Exam Constitutional: Appearance: Normal appearance. Genitourinary: Vulva normal. No vaginal discharge or bleeding. Right Adnexa: not palpable. Left Adnexa: not palpable. No cervical lesion. IUD strings visualized. Uterus is not enlarged or tender. Breasts: Right: Normal. Left: Normal. Pulmonary: Effort: Pulmonary effort is normal. Abdominal: Palpations: Abdomen is soft. Neurological: Mental Status: She is alert. Assessment/Plan ICD-10-CM 1. Well woman exam with routine gynecological exam Z01.419 2. Cervical cancer screening Z12.4 IGP, APT HPV,RFX 16/18,45 3. Screening for HPV (human papillomavirus) Z11.51 IGP, APT HPV,RFX 16/18,45 4. Other screening mammogram Z12.31 Bilateral screening mammogram with tomosynthesis 5. 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 attempted to get her in to machine fancy stitcher, but they had no openings. Ordered an allergen profile and aspergillus ab quantitative. Labs handwritten and faxed to [facility] lab. [employer] Other 07-03-2023 Evaluation note* Encounter Date Diagnosis Assessment Notes Treatment Notes Treatment Clinical Notes Feb, Other obesity due to excess shira lam (ICD-10 - E66.09) 8# weight loss in 3 months. Discussed diet and exercise. Would like to continue Mounjaro. No insurance issues. Feb,ody mass index [BMI] 31.0-31.9, adult (ICD-10 - Z68.31) Feb,AD (generalized anxiety disorder) (ICD-10 - F41.1)Stable at present med/dose. Doing well. [employer] Other 04-04-2023 Evaluation note* Encounter Date Diagnosis Assessment Notes Treatment Notes Treatment Clinical Notes Nov, Other obesity due to excess shira lam (ICD-10 - E66.09) Will refill med when due - has definately changed diet and exercise. Has done great on med and denies problems obtaining it w her insurance. Nov,ody mass index [BMI] 32.0-32.9, adult (ICD-10 - Z68.32) [employer] Other Evaluation noteNo InformationNort [employer] Other Evaluation noteNo assessment information available [facility] Work Phone: Evaluation note* Diagnosis Well woman exam with routine gynecological exam- Primary Routine gynecological examination Cervical cancer screening Screening for malignant neoplasm of the cervix Screening for HPV (human papillomavirus) Special screening examination for human papillomavirus (HPV) Other screening mammogram Intrauterine device surveillance documented in this encounter [facility] HealthcareEvaluation note* Diagnosis Onset Date Resolution Status Admit Date Class 1 obesity with body mass index (BM I) of 33.0 to 33.9 in adult acuteMay 2024 8:28amColon cancer screeningacuteMay 2024 8:28amIron (Fe) deficiency anemiaacuteMay 2024 8:28am [facility] Work Phone: History general Narrative - Reported* Type Description Date Medical History Dandruff in adult Medical HistoryGAD (generalized anxiety disorder)Surgical Historywisdom teeth Hospitalization Historychild [employer] Other Hospital Discharge instructionsAmbulatory Orders* Referral to Gastroenterology Location: None Selected [facility] Work Phone: Hospital Discharge instructions Additional Instructions DISCHARGE INSTRUCTIONS FOR UPPER ENDOSCOPY WHAT TO EXPECT: - You may feel full, gassy or cramping after your procedure. In some cases, this may be from a few hours to a day. Walking may help relieve the discomfort. - Your throat may feel sore today from the scope that the doctor passed through your throat to visualize your stomach. Take a throat lozenge or suck on ice to ease the discomfort. - You may notice some streaks of blood in your sputum if the doctor has taken a biopsy. - You should begin to recover from anesthesia within 1 hour of the procedure, however may feel groggy for the next 24 hours. DO's AND DON'Ts: - Call your doctor right away if you have a hard abdomen, severe pain, vomiting or if you cough up large amounts of blood. - Call your doctor if you develop any rashes, hives or difficulty breathing. - If you take 81 mg aspirin for your heart it is safe to resume this medication. - If you take other blood thinner medications your doctor will instruct you when these can safely be resumed. - Do NOT drive for 24 hours. - Do NOT operate machinery such as power tools, [employer] mowers, snow blowers, sewing machines, etc. for 24 hours. - Avoid alcoholic beverages and drugs for allergies, nerves, or sleep. - Do NOT stay alone. Do NOT leave your child unattended. - Do NOT make important personal or business decisions or sign any legal documents. - Eat solid foods and drink liquids in smaller amounts than usual until normal appetite returns. If you should experience an upset stomach, liquids high in sugar content (soda, Guzman-Aid, non-acid juices) are recommended. - Do NOT smoke. - Do take it easy today. You need not stay in bed, but avoid strenuous activities such as jogging or working out. DISCHARGE INSTRUCTIONS FOR COLONOSCOPY WHAT TO EXPECT: - You may feel full, gassy or cramping after your procedure. In some cases, this may be from a few hours to a day. Walking may help relieve the discomfort. - If you have polyp(s) removed you may note some minor bloody discharge after your first bowel movements. - You should begin to recover from anesthesia within 1 hour of the procedure, however may feel groggy for the next 24 hours. DO's AND DON'Ts: - Call your doctor right away if you have a hard abdomen, sever pain, are passing lots of bright red blood or clots. - Call your doctor if you develop any rashes, hives or difficulty breathing. - Let your doctor know if you have not had a bowel movement by 3 days after your procedure. - If you take 81 mg aspirin for your heart it is safe to resume this medication. - If you take other blood thinner medications your doctor will instruct you when these can safely be resumed. - Do NOT drive for 24 hours. - Do NOT operate machinery such as power tools, lawn mowers, snow blowers, sewing machines, etc. for 24 hours. - Avoid alcoholic beverages and drugs for allergies, nerves, or sleep. - Do NOT stay alone. Do NOT leave your child unattended. - Do NOT make important personal or business decisions or sign any legal documents. - Eat solid foods and drink liquids in smaller amounts than usual until normal appetite returns. If you should experience an upset stomach, liquids high in sugar content (soda, Guzman-Aid, non-acid juices) are recommended. - You can resume normal activities tomorrow. FOLLOW UP & RECOMMENDATIONS: -Please call the office and make a follow up appointment to see me if symptoms persist -Notify the doctor if you have any problems. -Repeat colonoscopy in 3 years with a 2-day bowel prep -Follow up with PCP. - Office number [phone]. [facility] Work Phone: Summary Purpose Family History No Family History Records Found Relationship Condition Age at Onset Recorded Date/T torrey mother Hypertension Unknown Advance Directives No Advanced Directives Records Found Advance Directive Response Recorded Date/ Time Advance Directives No February 03 18 2:35pm Advance Directive Response Recorded Date/ Time Advance Directives No January 12 12:01pm Chief Complaint and Reason for Visit Chief Complaint Admit Date Med f/u September 10, 2024 1 1:54am Chief Complaint Admit Date Wellness January 20, 2025 8:28a m Reason for Visit Admit Date Class 1 obesity with body ma ss index (BMI) of 33.0 to 33.9 in adult January 20, 2025 8:28am Colon cancer screening January 20, 2025 8: 28am Iron (Fe) deficiency anemia January 20 8:28am Chief Complaint Admit Date Wellness January 20, 2025 8:28a m IRON DEF ANEMIA February 22, 2025 8:06a m Reason for Visit Admit Date Class 1 obesity with body ma ss index (BMI) of 33.0 to 33.9 in adult January 20, 2025 8:28am Colon cancer screening January 20, 2025 8: 28am Exercise-induced asthma January 20, 2025 8 :28am Iron (Fe) deficiency anemia January 20 8:28am Wellness examination January 20, 2025 8:28 am Additional Source Comments INFORMATION SOURCE (unrecogn ized section and content) DATE CREATED AUTHOR 08/24/2020 [facility] DATE CREATED AUTHOR AUTHOR'S ORGANIZ ATION 01/23/2022 [facility] DATE CREATED AUTHOR AUTHOR'S ORGANIZ ATION 12/10/2024 [facility] EPIC DATE CREATED AUTHOR AUTHOR'S ORGANIZ ATION 03/05/2025 [facility] REASON FOR VISIT (unrecogniz ed section and content) Med DiscussionRefillRefill3 month Follow upNo Informationdiscuss black mold allergy testingmold testing Care Teams (unrecognized sec tion and content) Team Status: Active Member Role Status Dates Liseth Oconnor MD Primary Care Provider Active Team Status: Active Member Role Status Dates Liseth Oconnor MD Primary Care Provide r, Attending Provider Active Start: November 12, 2024 Team Status: Active Member Role Status Dates Liseth Oconnor MD Primary Care Provider Active Start: December 07, 2024 Dewey Napier ProviderActiveStart: December 07, 2024 Team Status: Inactive Member Role Status Dates Liseth Oconnor MD Primary Care Provide r, Attending Provider Active Start: January 20, 2025 End: January 20, 2025 Team Status: Inactive Member Role Status Dates Liseth Oconnor MD Primary Care Provide r, Attending Provider Active Start: September 10, 2024 End: September 10, 2024 Team Status: Inactive Member Role Status Dates Liseth Oconnor MD Primary Care Provider Active Start: January 20, 2025 End: January 20, 2025Dewey Colbert ProviderActiveStart: January 20, 2025 End: January 20, 2025 Team Status: Active Member Role Status Dates Liseth Oconnor MD Primary Care Provider Active Start: February 22, 2025 Angeline Raymond Attending ProviderActiveStart: February 22, 2025 Angeline L Ly , DOOther ProviderActiveStart: February 22, 2025 Goals (unrecognized section and content) Goals may [...] BE BASED ON THE PRIMARY CLINICAL RECORDS. [facility]. provides no warranty or guarantee of the accuracy or completeness of information in this document.
--- OUTSIDE RECORDS SUMMARY | 2025-07-07 07:45 | XMS_ITS | Clinical Summary ---
Author Organization [facility] Address [address] [place] [address] Care Team Providers Care Manager Medical Writing Name Role Phone Liseth Mckinney MD Primary Care Provider [phone] Allergies Active AllergyReactionsCriticalityNoted DateCommentsCherrySwellingMedium 03/17/2013Sulfa (Sulfonamide Antibiotics)Hives,PumgkmrzPmfrle47/08/2012 Medications MedicationSigDispense QuantityRefillsLast FilledStart DateEnd DateStatus levonorgestrel (MIRENA) 20 mcg/24 hr INTRAUTERINE IUD 1 Each one time only.ctive ergocalciferol, Vitamin D2, (VITAMIN D) 400 unit ORAL Cap Take 1 capsule by mouth once daily.ctive alpha tocopheryl acetate 400 unit ORAL capsule Take 1 capsule by mouth once daily.ctive multivitamin ORAL tablet Take 1 tablet by mouth once daily.ctive niacin 500 mg ORAL tablet Take 1 tablet by mouth daily at bedtime.ctive Glucosamine Sulfate (GLUCOSAMINE) 500 mg ORAL Tab Take 1 tablet by mouth once daily.ctive Active Problems ProblemNoted DateDiagnosed DateDiffuse cystic aysjpssqii88/08/2012Mastodynia 10/02/2011 Social History Tobacco UseTypesPacks/DayYears UsedDateSmoking Tobacco: Never Assessed CommentsUnknownSex and Gender InformationValueDate RecordedSex Assigned at Not on fileLegal SegXqupqn83/02/2012 9:57 AM ESTGender IdentityNot on fileSexual OrientationNot on file Last Filed Vital Signs Vital SignReadingTime TakenCommentsBlood Pressure--Pulse--Temperature-- Respiratory Rate--Oxygen Saturation--Inhaled Oxygen Concentration--Jurlvc45.1 kg (181 lb)10/02/2011 11:25 AM MICSknayv662 cm (5' 3 )10/02/2011 11:25 AM ESTBody Mass Index32.0610/02/2011 11:25 AM EST Plan of Treatment Health MaintenanceDue DateLast DoneCommentsAnxiety Ottdzyrcm67/24/1991Depression Sstiqxmdj91/24/1991HIV Qwgxsabwe35/24/1991Hepatitis C Pivwxgglg56/24/1991 DTaP,Tdap,Td Vaccine (1 - Tdap)1991Hepatitis B Vaccine (1 of 3 - 19+ 3- dose series)1991Cervical Cancer Pshkiqgiz51/24/1994Mammogram Screening CT Zqznbkmvfagm75/24/2018Cologuard (FIT-DNA)2017 Rnmlgmhcohc97/24/2018Colorectal Cancer Bpiwihvfu92/24/2018Diabetes Screening 2017Fecal Occult Blood2017Lipid Wgzvyrglm54/24/2018Sigmoidoscopy 2017Pneumococcal Vaccine: 50+ (1 of 1 - PCV)2022Shingrix Vaccine (1 of 2)3Covid-19 Vaccine (1 - 2024- season)2025Influenza Vaccine (#1)2025 Procedures Procedure NamePriorityDate/TimeAssociated DiagnosisCommentsMAMM CLINIC SCREEN DIG CAD VEHAngjauh76/24/2013 11:29 AM EDT Diffuse cystic mastopathy from Last 3 Months or Most Recently Relevant to Health Maintenance Results * MAMM CLINIC SCREEN DIG CAD JACOB (03/17/2013 11:29 AM EDT)ComponentValueRef RangeTest MethodAnalysis TimePerformed AtPathologist SignatureTranscription* * *Final Report* * * DATE OF EXAM: Mar 17 2013 11:29AM ?? BCW ?? [id number] ??- ??[facility]INIC SCREEN DIG CAD JACOB ??/ PROCEDURE REASON: Diffuse cystic mastopathy * ??* ??* Physician Interpretation * ??* ??* #[id number] - [facility] CLINIC SCREEN DIG CAD JACOB # BILATERAL DIGITAL SCREENING MAMMOGRAM WITH CAD: 03/17/2013 HISTORY: Clinic Screening Mammogram - patient reports NO breast symptoms. RESULT: TECHNIQUE: ??The study was acquired using full field digital technology and interpreted from soft copy. Current study was also evaluated with a Computer Aided Detection (CAD). ?? Comparison is made to exams dated: ??06/20/2011 mammogram, 10/02/2011 mammogram and 10[facility]02/[facility] ?? There are scattered fibroglandular elements in both breasts. ?? No significant masses, calcifications, or other findings are seen in either breast. ?? There has been no significant interval change. IMPRESSION: NEGATIVE There is no mammographic evidence of malignancy. ??A 1 year screening mammogram is recommended. Wanda Silva M.D. ? sm/penrad:03/17/2013 11:33:02 ?? Ambulette Driver: Celina ARREDONDO(Genoveva)(Tem[place]), [facility] letter sent: Normal over 40 ?? Mammogram BI-RADS: 1 Negative Accounts Payable Supervisor: LIBAN Transcribe Date/Time: Mar 17 2013 11:33A Dictated by : WANDA SILVA MD This examination was interpreted and the report reviewed and electronically signed by: WANDA SILVA MD On Mar 17 2013 11:33AM DIVISION OF RADIOLOGYAnatomical RegionLateralityModalityOtherSpecimen (Source) Anatomical Location / LateralityCollection Method / VolumeCollection Time Received Time03/17/2013 11:29 AM EDT Narrative Authorizing ProviderResult TypeResult StatusHolly Airam Riley MDMAMMOGRAPHY Final Result from Last 3 Months or Most Recently Relevant to Health Maintenance Insurance Care Teams Team MemberRelationshipSpecialtyStart DateEnd Date Liseth Mckinney MD [address] [facility] [place] [address] [facility]
--- OUTSIDE RECORDS SUMMARY | 2025-07-07 07:46 | XMS_ITS | Patient Health Record ---
Author Organization [facility] [place] Address [address] [place] [place] [address] Care Team Providers Care Early Childhood Special Educator Name Role Phone -None, Unknown Primary Care Provider Keiko Hayes Unavailable [phone] Results Component Value Reference Range Notes FERRITIN (Not yet reviewed b y provider) Interpretation: Performing Lab: Notes/Report: [facility] , Ferritin 11.0 8.0-252.0 ng/mL Performing Lab:see note - [facility] LBFOLATE (Not yet reviewed by provider) Interpretation: Performing Lab: Notes/Report: [facility] ,Ofiszy34.508.60-58.90 ng/mLPerforming Lab:see note - [facility] LB IMMUNOGLOBULIN E, TOTAL (Not yet reviewed by provider) Interpretation: Performing Lab: Notes/Report: [facility] ,Immunoglobulin E, Zxhec869-730 IU/mL Performed at: [address] [id number] Property Loss Insurance Claim Adjuster: Leticia Fry MD, Phone: [phone] Performing Lab:see note - [facility] LBIRON AND TIBC (Not yet reviewed by provider) Interpretation: Performing Lab: Notes/Report: [facility] ,Iron32.050.0-170.0 ug/dLTotal Iron Binding Pfdwyjsb538.0250.0-450.0 ug/dL Percent Iron Saturation7.5Performing Lab:see note - [facility] LB SEVERO w/Reflex (Not yet reviewed by provider) Interpretation: Performing Lab: Notes/Report: [facility] ,SEVERO DirectNegativeNegative Performed at: [facility] Property Loss Insurance Claim Adjuster: Mohan Obrien PhD, Phone: [phone] [address], [place] [id number] Performing Lab:see noteLC - [facility] LBIFE, PE and FLC, Serum (Not yet reviewed by provider) Interpretation: Performing Lab: Notes/Report: [facility] ,Immunoglobulin G, Qn, Cqdpr7863411-2956 mg/dLImmunoglobulin A, Qn, Jxuqj88896- 352 mg/dLImmunoglobulin M, Qn, Pmwdf42265-871 mg/dLProtein, Total7.76.0-8.5 g/dL Albumin4.22.9-4.4 g/oHDrmsz-1-Ztkhliae3.30.0-0.4 g/dMPzkrz-1-Rihyobxz4.80.4-1.0 g/dLBeta Globulin1.20.7-1.3 g/dLGamma Globulin1.30.4-1.8 g/dLM-SpikeNot Observed Not Observed g/dLGlobulin, Total3.52.2-3.9 g/dLA/G Ratio1.30.7-1.7Immunofixation Result, SerumComment.No monoclonality detected.Please note:Comment. Protein electrophoresis scan will follow via computer, mail, or armored car guard delivery. Free [place] Lt Chains,S18.43.3-19.4 mg/LFree Lambda Lt Chains,S12.25.7-26.3 mg/L [place]/Lambda Ratio,S1.510.26-1.65 Performed at: [facility] Property Loss Insurance Claim Adjuster: Mohan Obrien PhD, Phone: [phone] [address], [place] [phone] Performing Lab:see noteLC - [facility] LBReticulocyte Pct Auto (Not yet reviewed by provider) Interpretation: Performing Lab: Notes/Report: [facility] ,Reticulocyte Pct Auto0.800.60-3.10 %Performing Lab:see noteML - [facility] LBCBC AUTO DIFF (Not yet reviewed by provider) Interpretation: Performing Lab: Notes/Report: [facility] ,White Blood Count5.04.0-11.0 10 3/uLRed Blood Count4.724.20-5.40 10 6/uL Lcbchvlnkj10.012.0-16.0 g/nQYuxbnnkbky15.436.0-48.0 %Mean Corpuscular Ajfbxc33.7 81.0-99.0 fLMean Corpuscular Brwckmktuz68.726.7-34.0 pgMean Corpuscular HGB Conc 33.829.9-35.2 g/dLRed Cell Distribution Width19.211.0-15.0 %Platelet Cizki950 150-450 10 3/uLMean Platelet Volume9.39.5-13.5 fLNeutrophils Percent Auto58.3 43.0-75.0 %Lymphocytes Percent Auto31.820.5-60.0 %Monocytes Percent Auto8.31.7- 12.0 %Eosinophils Percent Auto0.60.9-7.0 %Basophils Percent Auto0.80.2-2.0 % Immature Granulocytes Pct Auto0.20.0-0.5 %Neutrophils Absolute Auto2.91.4-6.5 10 3/uLLymphocytes Absolute Auto1.61.2-3.8 10 3/uLMonocytes Absolute Auto0.40.3-0.8 10 3/uLEosinophils Absolute Auto0.00.0-0.7 10 3/uLBasophils Absolute Auto0.00.0- 0.1 10 3/uLImmature Granulocytes Abs Auto0.010.00-0.03 10 3/uLPerforming Lab:see noteML - [facility] LBPROF CHEM 8 (BAS METB) (Not yet reviewed by provider) Interpretation: Performing Lab: Notes/Report: [facility] ,Lkkfap417633-629 mmol/LPotassium3.83.5-5.1 mmol/CJbkceyyy63471-156 mmol/LCarbon Ohguchx80.421.0-32.0 mmol/LAnion Gap14.0Dyyenuh62980-079 mg/dLBlood Urea Xyjxnjuq92.07.0-18.0 mg/dLCreatinine0.770.55-1.02 mg/dLEstimated GFR ( Yulissa>60>=60 mL/min/1.73m 2Estimated GFR (Non- Zulema>60>=60 mL/min/1.73m 2BUN Creatinine Ratio20.9Aetftmv9.48.5-10.1 mg/dLPerforming Lab:see note - [facility] LBVITAMIN D 25 [place] (Not yet reviewed by provider) Interpretation: Performing Lab: Notes/Report: [facility] ,Vitamin D28.7 20-<30 ng/mL Vit D insufficient 30-100 ng/mL Vit D sufficient <20 ng/mL Vit D deficient >100 ng/mL Potential Toxicity Performing Lab:see note - [facility] LBIRON AND TIBC (Not yet reviewed by provider) Interpretation: Performing Lab: Notes/Report: [facility] ,Iron81.050.0-170.0 ug/dLTotal Iron Binding Gpzhadbt326.0250.0-450.0 ug/dL Percent Iron Uuvsypzmhg52.6Performing Lab:see note - [facility] LB FERRITIN (Not yet reviewed by provider) Interpretation: Performing Lab: Notes/Report: [facility] ,Wajpwqvc69.08.0-252.0 ng/mLPerforming Lab:see note - [facility] LB Vitamin B12 (Not yet reviewed by provider) Interpretation: Performing Lab: Notes/Report: [facility] ,Vitamin [id number] pg/mL Performed at: [facility] [address] [id number] Property Loss Insurance Claim Adjuster: Mohan Obrien PhD, Phone: [phone] Performing Lab:see note - [facility] LBErythrocyte Sedimentation Rate (Not yet reviewed by provider) Interpretation: Performing Lab: Notes/Report: [facility] ,Erythrocyte Sedimentation Rate38<=30 mm/hrPerforming Lab:see note - [facility] LBLDH (Not yet reviewed by provider) Interpretation: Performing Lab: Notes/Report: [facility] ,Lactate Igqnrxwrzjaxq43133-319 U/LPerforming Lab:see note - [facility] LBCRP (Not yet reviewed by provider) Interpretation: Performing Lab: Notes/Report: [facility] ,C Reactive Protein<0.50<=0.50 mg/dLPerforming Lab:[facility]Pro[facility] LBCBC AUTO DIFF (Not yet reviewed by provider) Interpretation: Performing Lab: Notes/Report: [facility] ,White Blood Count6.04.0-11.0 10 3/uLRed Blood Count4.664.20-5.40 10 6/uL Uhffjuewai39.912.0-16.0 g/xOQbdkceeeaq73.136.0-48.0 %Mean Corpuscular Ouulvy39.8 81.0-99.0 fLMean Corpuscular Cagdumdcsj99.526.7-34.0 pgMean Corpuscular HGB Conc 31.229.9-35.2 g/dLRed Cell Distribution Width18.311.0-15.0 %Platelet Owqqs892 150-450 10 3/uLMean Platelet Volume9.49.5-13.5 fLNeutrophils Percent Auto65.2 43.0-75.0 %Lymphocytes Percent Auto26.120.5-60.0 %Monocytes Percent Auto7.51.7- 12.0 %Eosinophils Percent Auto0.30.9-7.0 %Basophils Percent Auto0.70.2-2.0 % Immature Granulocytes Pct Auto0.20.0-0.5 %Neutrophils Absolute Auto3.91.4-6.5 10 3/uLLymphocytes Absolute Auto1.61.2-3.8 10 3/uLMonocytes Absolute Auto0.50.3-0.8 10 3/uLEosinophils Absolute Auto0.00.0-0.7 10 3/uLBasophils Absolute Auto0.00.0- 0.1 10 3/uLImmature Granulocytes Abs Auto0.010.00-0.03 10 3/uLPerforming Lab:see noteML - [facility] LBVitamin B12 (Not yet reviewed by provider) Interpretation: Performing Lab: Notes/Report: [facility] ,Vitamin [id number] pg/mL Performed at: - [facility] [address] [id number] Property Loss Insurance Claim Adjuster: Mohan Obrien PhD, Phone: [phone] Performing Lab:see noteLC - [facility] LB Reason For Referral No Information Encounters Encounter Location Date Provider Diagnosis [facility] Oncology [address] [place] [address] 01/07/2025 [address] [facility] [address] [place] [address]/ [facility] [address] [facility] [place] [address]/[facility] [address] [facility] [place] [address]/[facility] Oncology [address] [place] [facility] [place] [address]/[facility] Plan Of Treatment Pending Test Test Name Order Date CBC AUTO DIFF 12/07/2024 CBC AUTO DIFF 02/24/2025 CRP 12/07/2024 FERRITIN 12/07/2024 FERRITIN 02/24/2025 FOLATE 12/07/2024 IMMUNOGLOBULIN E, TOTAL 12/07/2024 IRON AND TIBC 12/07/2024 IRON AND TIBC 02/24/2025 LDH 12/07/2024 PROF CHEM 8 (BAS METB) 02/24/2025 VITAMIN D 25 [place] 02/24/2025 Erythrocyte Sedimentation Rate SEVERO w/Reflex 12/07/2024 LIZZIE, PE and FLC, Serum 12/07/2024 Reticulocyte Pct Auto 12/07/2024 Vitamin B12 12/07/2024 Vitamin B12 02/24/2025 Next Appt Details Provider Name:Keiok Barba , 07/12/2025 01:15:00 PM, [address] [place] [facility] [place], [address], Insurance Providers Payer Name Payer Address Payer Phone Subscriber Number Group Number Insured Name Patient Relationship to Insured Coverage Start Date Coverage End Date [facility] [address] [place] [address] [id number] [address] ROD Self - patient is the insured
[2025-07-07 08:34] LABS: Hematocrit 44.2 % (36.0-48.0); Hemoglobin 15.0 g/dL (12.0-16.0); Immature Granulocytes Abs Auto 0.00 10^3/uL (0.00-0.03); Immature Granulocytes Pct Auto 0.0 % (0.0-0.5); Lymphocytes Absolute Auto 1.3 10^3/uL (1.2-3.8); Mean Corpuscular HGB Conc 33.9 g/dL (29.9-35.2); Mean Corpuscular Hemoglobin 32.4 pg (26.7-34.0); Mean Corpuscular Volume 95.5 fL (81.0-99.0); Platelet Count 262 10^3/uL (150-450); Red Blood Count 4.63 10^6/uL (4.20-5.40); White Blood Count 3.8 10^3/uL (4.0-11.0)
[2025-07-07 09:39] LABS: Iron 108.0 ug/dL (50.0-170.0); Percent Iron Saturation 36.1 %; Total Iron Binding Capacity 299.0 ug/dL (250.0-450.0)
[2025-07-07 10:14] LABS: Ferritin 76.0 ng/mL (8.0-252.0)
[2025-07-08 07:08] LABS: Vitamin B12 608 pg/mL (232-1245)
== END 2025-07-07 07:41 | disposition home or self-care (01) ==
PROVIDERS: PCP Family Medicine; Visit Provider Internal Medicine Hematology & Oncology
DX: D64.9 Anemia, unspecified (principal); D72.819 Decreased white blood cell count, unspecified; D50.9 Iron deficiency anemia, unspecified; K90.9 Intestinal malabsorption, unspecified
CPT/HCPCS: 36415; 82306; 82607; 82728; 83540; 83550; 85025

== ENCOUNTER 2025-07-12 12:55 | Outpatient (RCR) | payer BC, OTHER, SELFPAY | END 2025-07-24 23:59 | disposition home or self-care (01) | LOC: HEMC 12:55 | PROVIDERS: PCP Family Medicine; Visit Provider Internal Medicine Hematology & Oncology | DX: D64.9 Anemia, unspecified (principal); D72.819 Decreased white blood cell count, unspecified; D50.9 Iron deficiency anemia, unspecified; K90.9 Intestinal malabsorption, unspecified; M79.10 Myalgia, unspecified site; R53.83 Other fatigue; R53.1 Weakness; M25.50 Pain in unspecified joint | CPT/HCPCS: G0463 ==